=== PATIENT | female | born 1940 | race Caucasian/White ===

== ENCOUNTER 2019-05-12 11:41 | Outpatient (CLI) | payer MEDICARE, SELFPAY ==
--- NOTE | ~2019-05-12 | XR_ITS ---
EXAMINATION: XR hand RT min 3V INDICATION: Unspecified osteoarthritis TECHNIQUE: Three views of the right hand are obtained. COMPARISON: 05/10/2016 FINDINGS: There is an old healed fracture at the head of the fifth metacarpal. No acute osseous findi ngs are evident. There is mild osteoarthritis second and third metacarpophalangeal joints, the second and third proximal interphalangeal joints, and the fourth and fifth proximal and distal interphalang eal joint. There is moderate osteoarthritis of the first interphalangeal joint and second distal inte rphalangeal joint. The soft tissues are unremarkable. IMPRESSION: 1. Polyarticular osteoarthritis. Reviewed, dictated and finalized at location A. [employer]TAIN[employer]
--- NOTE | ~2019-05-12 | XR_ITS ---
EXAMINATION: XR hand LT min 3V DATE: 05/12/2019 12:00 INDICATION: Unspecified osteoarthritis. TECHNIQUE: 3 views of left hand were obtained. COMPARISON: Left hand radiographs 06/02/2016 FINDINGS: Bone alignment is normal. No fracture. There is mild osteoarthritis of second and third met acarpophalangeal joints, first interphalangeal joint, second and third proximal interphalangeal joint s, and fourth and fifth distal interphalangeal joints. There is moderate osteoarthritis of second and third distal interphalangeal joints. IMPRESSION: 1. Polyarticular osteoarthritis. Reviewed, dictated and finalized at location A. [employer]
== END 2019-05-12 11:42 | disposition home or self-care (01) ==
LOC: ANHIMG 11:51
PROVIDERS: PCP Internal Medicine; Visit Provider Internal Medicine
DX: M15.9 Polyosteoarthritis, unspecified (principal)
CPT/HCPCS: 73130

== ENCOUNTER 2019-06-21 10:21 | Outpatient (CLI) | payer MEDICARE, SELFPAY ==
--- NOTE | ~2019-06-21 | XR_ITS ---
EXAMINATION: XR wrist RT 2V DATE: 06/21/2019 10:35 INDICATION: Unspecified right wrist pain TECHNIQUE: Posteroanterior, ulnar deviation, oblique, and lateral views of the right wrist were obtai arun. COMPARISON: Right hand radiographs dated 05/12/2019 FINDINGS: Diffuse osteopenia. 4 mm ulnar minus variance. Alignment is otherwise normal. No acute fracture. Old healed fracture at the head/neck of the right fifth metacarpal with mild secondary osteoarthritis at the fifth metacarpophalangeal joint. Additional mild to moderate osteoarthritis at the distal radioul jaelyn joint and moderate osteoarthritis at the first interphalangeal joint. Soft tissues are unremarkab le. IMPRESSION: 1. Polyarticular osteoarthritis. Reviewed, dictated and finalized at location A.
== END 2019-06-21 10:22 | disposition home or self-care (01) ==
PROVIDERS: PCP Internal Medicine; Visit Provider Nurse Practitioner
DX: M25.539 Pain in unspecified wrist (principal); M19.031 Primary osteoarthritis, right wrist
CPT/HCPCS: 73100

== ENCOUNTER 2019-06-23 10:33 | Outpatient (CLI) | payer MEDICARE, SELFPAY ==
--- NOTE | ~2019-06-23 | XR_ITS ---
EXAMINATION: XR chest 2V DATE: 06/23/2019 10:57 INDICATION: Cough and shortness of breath TECHNIQUE: Frontal and lateral views of the chest are obtained COMPARISON: 03/02/2018 FINDINGS: The lungs are hyperinflated but free of acute opacities. There is no pleural effusion or pn eumothorax. There is stable cardiomegaly. There is moderate thoracic spondylosis. IMPRESSION: 1. No acute cardiopulmonary abnormality. 2. Stable cardiomegaly. Reviewed, dictated and finalized at location B.
== END 2019-06-23 10:34 | disposition home or self-care (01) ==
LOC: ANHIMG 10:39
PROVIDERS: PCP Internal Medicine; Visit Provider Internal Medicine
DX: J40 Bronchitis, not specified as acute or chronic (principal); I51.7 Cardiomegaly
CPT/HCPCS: 71046

== ENCOUNTER 2019-07-21 11:31 | Outpatient (CLI) | payer MEDICARE, SELFPAY ==
--- NOTE | ~2019-07-21 | XR_ITS ---
EXAMINATION: XR chest 2V DATE: 07/21/2019 11:50 INDICATION: Shortness of breath, COVID-19 TECHNIQUE: AP and lateral views of the chest are obtained. COMPARISON: 06/23/2019 FINDINGS: Airspace opacities have developed in the left mid and lower lung zones and at the periphery of the left upper lung zone. There are minimal right basilar airspace opacity. No pleural effusion o r pneumothorax is identified. There is stable cardiomegaly. There is moderate thoracic spondylosis. IMPRESSION: 1. New bilateral airspace opacities, left greater than right, compatible with history of COVID-19 pne umonia. Reviewed, dictated and finalized at location A. IMPRESSION: 1. New bilateral airspace opacities, left greater than right, compatible with h istory of COVID-19 pneumonia.
== END 2019-07-21 11:32 | disposition home or self-care (01) ==
PROVIDERS: PCP Internal Medicine; Visit Provider Internal Medicine
DX: U07.1 COVID-19 (principal); R06.02 Shortness of breath; R91.8 Other nonspecific abnormal finding of lung field
CPT/HCPCS: 71046

== ENCOUNTER 2019-07-28 11:03 | Outpatient (CLI) | payer MEDICARE, SELFPAY ==
[2019-07-28 11:30] VITALS: O2SAT 94
[2019-07-28 11:33] VITALS: O2SAT 87
[2019-07-28 11:35] VITALS: O2SAT 87
[2019-07-28 11:37] VITALS: O2SAT 93
[2019-07-28 11:45] VITALS: O2SAT 95
--- NOTE | 2019-07-28 11:50 | HOMEO2EVAL ---
Home Oxygen Evaluation RC: Home Oxygen (O2) Evaluation Start: 07/28/19 11:47 Freq: Status: Active Protocol: RPE Activity Type Activity Date Activity User E-Sign Co-Sign Detail Recorded Client Recorded Date Recorded By Document 07/28/19 11:30 MIRIAM [id number] 07/28/19 11:49 MIRIAM Document 07/28/19 11:33 MIRIAM [id number] 07/28/19 11:49 MIRIAM Document 07/28/19 11:35 MIRIAM [id number] 07/28/19 11:49 MIRIAM Document 07/28/19 11:37 MIRIAM [id number] 07/28/19 11:49 MIRIAM Document 07/28/19 11:45 MIRIAM [id number] 07/28/19 11:49 MIRIAM 07/28/19 07/28/19 07/28/19 11:30 11:33 11:35 Home O2 Evaluation Test Phase Resting Exercise Exercise Oxygen Delivery Room Air Room Air Nasal Cannula Oxygen Flow Rate (L/min) 1 Pulse Oximetry (90-100 %) 94 87 L 87 L Home Oxygen Evaluation Comments 07/28/19 07/28/19 11:37 11:45 Home O2 Evaluation Test Phase Exercise Resting Oxygen Delivery Nasal Cannula Room Air Oxygen Flow Rate (L/min) 2 Pulse Oximetry (90-100 %) 93 95 Home Oxygen Evaluation Comments PT REQUIRES 2L WITH ACTIVITY
--- NOTE | 2019-07-28 11:51 | PCRCNOTE ---
HOME O2 EVAL DONE, PT NEEDS 2L WITH ACTIVITY. EVAL FAXED TO DR VASQUEZ
== END 2019-07-28 11:04 | disposition home or self-care (01) ==
PROVIDERS: PCP Internal Medicine; Visit Provider Internal Medicine
DX: R06.02 Shortness of breath (principal)
CPT/HCPCS: 94618

== ENCOUNTER 2019-11-10 12:13 | Inpatient (IN) | payer MEDICARE, SELFPAY ==
[2019-11-10] VITALS (12 sets, daily range): BP systolic 108–131; BP diastolic 65–90; PULSE 70–133; RESP 18–22; TEMP 36.1–36.9; O2SAT 96–99
--- NOTE | ~2019-11-10 | XR_ITS ---
XR chest 1V portable DATE: 11/10/2019 13:05 INDICATION: Shortness of breath, tachycardia TECHNIQUE: Portable AP chest on 11/10/2019 at 1306 hours COMPARISON: 07/21/2019 2 view chest FINDINGS: There is cardiomegaly. There is pulmonary vascular redistribution suggesting pulmonary veno us hypertension. No pulmonary consolidation or pleural effusion or pneumothorax is evident. Diffuse osteopenia. IMPRESSION: Cardiomegaly, pulmonary vascular redistribution, suggesting mild congestive heart failure Diffuse osteopenia Reviewed, dictated and finalized at location A. IMPRESSION: Cardiomegaly, pulmonary vascular redistribution, suggesting mild co ngestive heart failure Diffuse osteopenia
--- NOTE | ~2019-11-10 | XR_ITS ---
EXAMINATION: XR abdomen/kub 1V DATE: 11/11/2019 14:27 INDICATION: Abdominal distention. TECHNIQUE: A supine view of the abdomen was obtained. COMPARISON: None. FINDINGS: There are no dilated loops of bowel. There is a small volume of stool in the colon. There i s internal fixation of proximal left femur. IMPRESSION: 1. Normal bowel gas pattern. Reviewed, dictated and finalized at location B.
--- NOTE | 2019-11-10 12:25 | ECG_ITS ---
Measurements Intervals [place] Rate: 129 P: IA: 0 QRS: 123 QRSD: 93 T: 47 QT: 316 QTc: 464 Interpretive Statements ATRIAL TACHYCARDIA/FLUTTER WITH RAPID VENTRICULAR RESPONSE RIGHT AXIS DEVIATION CANNOT RULE OUT SEPTAL INFARCT, AGE INDETERMINATE BORDERLINE ST-T WAVE ABNORMALITY- DIFFUSE LEADS BASELINE ARTIFACT- I, III, AVR, AVL, V4 ABNORMAL ECG Electronically Signed On 11-10-2019 12:58:15 CDT by Kimani Chino D.O.
--- NOTE | 2019-11-10 12:41 | ED.ARRPALP ---
HPI - Arrhythmia/Palpitations General Chief Complaint: Arrhythmia/Palpitations Stated Complaint: rapid heart rate Time Seen by Provider: 11/10/19 12:22 Source: patient Mode of arrival: ambulatory Limitations: no limitations History of Present Illness HPI narrative: This patient is 79 year old female with history of COPD, home oxygen, and atrial fibrillation who presents from her PCP's office for evaluation of a rapid heart beat. Patient states she has been having fatigue and shortness of breath for several weeks. She went to her PCP 's for an evaluation today and they found that she had an elevated heart rate. She was sent to ER for evaluation. She denies palpitations or feeling a rapid heart rate. She states she has been in atrial fibrillation for years. She normally takes diltiazem and metoprolol but she has not taken today's dose. She reports mild nonproductive cough for 1 week. She denies fever or chills. She also denies abdominal pain, nausea, vomiting or diarrhea. She is having an issue with constipation and abdominal bloating . Related Data Home Medications Medication Instructions Recorded Confirmed furosemide 40 mg PO BID 01/14/19 11/10/19 metoprolol tartrate 50 mg PO Q12H 01/14/19 11/10/19 travoprost [Travatan Z] 1 drp OPHTHALMIC (EYE) QPM 01/14/19 11/10/19 amitriptyline 25 mg PO HS 11/10/19 11/10/19 citalopram 20 mg PO DAILY 11/10/19 11/10/19 fluticasone propion-salmeterol 2 inh INHALATION DAILY 11/10/19 11/10/19 [Advair Diskus] losartan 25 mg PO DAILY 11/10/19 11/10/19 mirabegron [Myrbetriq] 25 mg PO HS 11/10/19 11/10/19 saxagliptin [Onglyza] 2.5 mg PO DAILY 11/10/19 11/10/19 sulfasalazine 1,000 mg PO BID 11/10/19 11/10/19 Allergies Allergy/AdvReac Type Severity Reaction Status Date / Time tolterodine Allergy Severe Itching Verified 11/10/19 12:26 Estrogens Allergy Mild SEVERE Verified 11/10/19 12:26 ITCHING levonorgestrel Allergy Mild Rash Verified 11/10/19 12:26 alendronate sodium Allergy Unknown canker Verified 11/10/19 12:26 sores in mouth estradiol Allergy Unknown canker Verified 11/10/19 12:26 sores in mouth estrogens, conjugated Allergy Unknown canker Verified 11/10/19 12:26 sores in mouth glipizide Allergy Unknown Nausea and Verified 11/10/19 12:26 Vomiting metformin Allergy Unknown Nausea and Verified 11/10/19 12:26 Vomiting paroxetine Allergy Unknown Nausea and Verified 11/10/19 12:26 Vomiting warfarin Allergy Unknown Rash Verified 11/10/19 12:26 atorvastatin AdvReac Unknown canker Verified 11/10/19 12:26 sores in mouth Review of Systems Review of Systems: All systems reviewed & are unremarkable except as noted in HPI and below Constitutional: Constitutional: Denies chills, Reports fatigue and Denies fever(s) Cardiovascular: Cardiovascular: Denies chest pain, Reports rapid heart rate and Denies radiating jaw, neck or arm pain Respiratory: Respiratory: Reports cough, Reports dyspnea and Denies wheezing Gastrointestinal: Gastrointestinal: Denies abdominal pain, Reports constipation, Denies nausea and Denies vomiting Musculoskeletal: Musculoskeletal: Reports back pain [facility] Past Medical History Medical History (Updated 11/10/19 @ 21:49 by Ernestina Talley MD) Anemia of chronic disease Aortic stenosis Atrial fibrillation Benign essential hypertension Chronic kidney disease, stage III (moderate) Chronic obstructive pulmonary disease, unspecified Diverticulitis Glaucoma Hypertension Pulmonary hypertension S/P ORIF (open reduction internal fixation) fracture left hip Type 2 diabetes mellitus with diabetic polyneuropathy Surgical History Surgical History Cataract extraction status H/O rectal polypectomy H/O repair of left rotator cuff H/O tubal ligation H/O: hysterectomy History of appendectomy History of bladder surgery History of tonsillectomy History of
[2019-11-10] MEDS: dilTIAZem HCl INJ 25 MG/5 ML VIAL 20 MG IV PUSH (12:49)
[2019-11-10 12:51] LABS: Basophils Absolute Auto 0.1 K/mm3 (0.0-0.1); Basophils Percent Auto 0.8 % (0.2-1.2); Eosinophils Absolute Auto 0.1 K/mm3 (0-0.3); Eosinophils Percent Auto 0.9 % (0-4.4); Hematocrit 36.9 % (37.0-47.0); Hemoglobin 10.9 g/dL (12.0-15.0); Immature Granulocyte Absolute 0.03 K/mm3 (0.00-0.031); Immature Granulocyte Percent A 0.5 % (0-0.5); Lymphocytes Absolute Auto 0.67 K/mm3 (0.9-3.2); Lymphocytes Percent Auto 10.1 % (18.3-44.2); Mean Corpuscular HGB Conc 29.5 g/dl (32-36); Mean Corpuscular Hemoglobin 24.7 pg (26-34); Mean Corpuscular Volume 83.7 fl (80-100); Mean Platelet Volume 10.1 fl (7.4-10.4); Monocytes Absolute Auto 0.5 K/mm3 (0.1-0.6); Monocytes Percent Auto 7.6 % (2.6-8.5); Neutrophils Absolute Auto 5.3 K/mm3 (1.3-6.7); Neutrophils Percent Auto 80.1 % (45.5-73.1); Platelet Count Result 158 k/mm3 (150-375); Red Blood Count 4.41 M/mm3 (4.2-5.4); Red Cell Distribution Width 18.1 % (11.5-14.5); White Blood Count 6.6 K/mm3 (4.5-10.0)
[2019-11-10 12:59] LABS: Platelet Estimate Adequate (Adequate)
[2019-11-10 13:00] LABS: Anisocytosis 1+ (NORMAL); Hypochromasia 1+ (NORMAL); Ovalocytes 2+ (NORMAL); Poikilocytosis 1+ (NORMAL)
[2019-11-10 13:06] LABS: Anion Gap 10 mmol/L (8-16); Blood Urea Nitrogen 13 mg/dL (7-17); Calcium 9.3 mg/dL (8.4-10.2); Carbon Dioxide 25 mmol/L (22-30); Chloride 102 mmol/L (98-107); Estimated CRCL calculation 52 ml/min; Estimated Glomerular Filt Rate > 60; Glucose 103 mg/dL (65-105); Potassium 4.2 mmol/L (3.4-5.0); Sodium 137 mmol/L (137-145)
[2019-11-10] MEDS: METOPROLOL TARTRATE INJ 5 MG/5 ML VIAL IV PUSH ×2 (13:07→14:07)
[2019-11-10 13:08] LABS: INR 1.4; Prothrombin Time 16.4 Seconds (11.1-14.7)
[2019-11-10 13:09] LABS: Partial Thromboplastin Time 33.7 SECONDS (22.3-36.8)
[2019-11-10 13:16] LABS: NT Pro B Type Natriuretic Pept 5260 PG/ML (5-100); Troponin I < 0.012 ng/mL (0.000-0.034)
[2019-11-10] MEDS: dilTIAZem HCL CD 180 MG CAP.ER.24H PO (14:07)
[2019-11-10] MEDS: METOPROLOL TARTRATE 50 MG TAB PO ×2 (14:07→21:24)
[2019-11-10] MEDS: FUROSEMIDE INJ 40 MG/4 ML VIAL IV PUSH (15:12)
--- NOTE | 2019-11-10 16:17 | PM.IMHP ---
H&P: HPI History of Present Illness Date/Time: 11/10/19 16:17 Chief complaint: tachycardia,chf Narrative: Tricia Otto is a 79 year old female Who has a history of COPD and congestive heart failure. She has a history of atrial fibrillation. The patient complained of being fatigued and shortness of breath for several weeks. She presented to her primary care physician's office with a rapid heartbeat. The patient tells me she has not taken any of her medications today. She was sent to the emergency room for further evaluation due to the rapid heart rate. She denies feeling any rapid heart rate. She has been in atrial fibrillation for years. She typically takes diltiazem and metoprolol but did not take today's dose. She has had a nonproductive cough for 1 week. She has had no fever or chills no diarrhea and no nausea no vomiting. Today's chest x-ray was read as cardiomegaly pulmonary vascular redistribution suggesting mild congestive heart failure diffuse osteopenia. Her EKG was read as supraventricular tachycardia her heart rate was initially 128. The patient was given Cardizem push IV x1 and her rate slowed down somewhat which looked more like atrial fibrillation. She was also given Lopressor IV and her Lopressor orally. She was also given IV Lasix. The patient was very short of breath with minimal exertion. She typically sees Dr. flores for her atrial fibrillation and therefore Dr. flores was consulted. Patient does have some anemia but it looks like she is stable from her last lab draw back in August. Her BNP was noted to be 5260. Date of service is 06/10/2019 she is being admitted for AFib with RVR as well x-ray exacerbation of CHF. I have spent approximately 1 hour on this admission. The patient is being admitted to IMU. Review of Systems Review of Systems: All systems reviewed & are unremarkable except as noted in HPI and below Constitutional: Constitutional: Reports as per HPI and Reports no additional constitutional complaints Eyes: Eyes: Reports as per HPI and Reports no additional eye complaints ENT: Reports system reviewed and no additional complaints, except as documented and Reports Normal hearing present Cardiovascular: Cardiovascular: Reports no additional cardiovascular complaints Respiratory: Respiratory: Reports no additional respiratory complaints and Reports no additional respiratory complaints Gastrointestinal: Gastrointestinal: Reports as per HPI and Reports no additional gastrointestinal complaints Musculoskeletal: Musculoskeletal: Reports no additional musculoskeletal complaints Integumentary/Breasts: Skin/Breast: Reports system reviewed and no additional complaints, except as docu and Reports as per HPI Neurologic: Reports system reviewed and no additional complaints, except as documented, Reports as per HPI and Reports Normal hearing present Psychiatric: Psychiatric: Reports no additional psychiatric complaints and Reports as per HPI Endocrine: Endocrine: Reports no additional endocrine complaints Hematologic/Lymphatic: Hematologic/Lymphatic: Reports no additional hematologic/lymphatic complaints Allergic/Immunologic: Allergic/Immunologic: Reports no additional allergic/immunologic complaints [facility] Past Medical History Medical History (Updated 11/10/19 @ 16:52 by Linda Crandall NP) Anemia of chronic disease Atrial fibrillation Benign essential hypertension Chronic kidney disease, stage III (moderate) Chronic obstructive pulmonary disease, unspecified Diverticulitis Glaucoma Hypertension S/P ORIF (open reduction internal fixation) fracture left hip Type 2 diabetes mellitus with diabetic polyneuropathy Surgical History Surgical History (Updated 11/10/19 @ 16:41 by Linda Crandall NP) Cataract extraction status H/O rectal polypectomy H/O repair of left rotator cuff H/O tubal ligation H/O: hysterectomy History of appendectomy History of bladder surgery History of tonsillec
--- NOTE | 2019-11-10 17:16 | PM.CNCAR ---
Assessment and Plan Assessment and plan (1) Hypertension: Code(s): I10 - Essential (primary) hypertension Status: Chronic Assessment and Plan: at goal (2) Atrial fibrillation: Code(s): I48.91 - Unspecified atrial fibrillation Status: Chronic Assessment and Plan: start metoprolol 50 mg p.o. b.i.d. as well as continuing her diltiazem 180 mg daily. She is not anticoagulation candidate due to GI bleeding. (3) COVID-19 virus infection: Code(s): U07.1 - COVID-19 Status: Acute (4) (HFpEF) heart failure with preserved ejection fraction: Code(s): I50.30 - Unspecified diastolic (congestive) heart failure Status: Acute Assessment and Plan: Acute on chronic. Likely worsened by her rapid ventricular response of her atrial fibrillation as well as possible contribution from history of chronic virus infection. Will check a 2D echocardiogram Doppler Start furosemide 40 mg IV daily.. I/Os , daily weights, basic metabolic panel in the morning. (5) Pulmonary hypertension: Code(s): I27.20 - Pulmonary hypertension, unspecified Status: Acute Assessment and Plan: previously severe (6) Aortic stenosis: Code(s): I35.0 - Nonrheumatic aortic (valve) stenosis Status: Acute Assessment and Plan: mild History of Present Illness History of Present Illness Consult date/time: 11/10/19 17:16 Requesting physician: Ernestina Talley MD Consult reason: atrial fibrillation Reason For Visit: tachycardia,chf Narrative: date of service 11/10/2019 reason for admission: Shortness of breath, tachycardia History patient is a 79-year-old female who has history of COPD on oxygen since being diagnosed with Coronavirus back in May. She came to the hospital because of worsening shortness of breath. She states that since May she has been progressively more short of breath to the point that she cannot walk across the room without becoming dyspneic. Today she also felt her heart pounding very hard. The palpitations were new to her although she does have a history of atrial fibrillation it was pounding much more than usual. She has also been progressively wearing out very easily. She is tired throughout the day. She denies any chest pain. Has had some worsening swelling. Again she is short of breath basically doing anything. She denies any syncope, presyncope, paroxysmal nocturnal dyspnea, orthopnea. She came to the ER has found be tachycardic and was given 20 mg IV diltiazem as well as metoprolol 5 mg x3. Currently she is in atrial fibrillation with mildly fast rate. She is not on anticoagulation because of history of bleeding. With Review of Systems Review of Systems: All systems reviewed & are unremarkable except as noted in HPI and below Constitutional: Constitutional: Reports weakness Eyes: Eyes: Denies blurry vision ENT: Reports Normal hearing present Cardiovascular: Cardiovascular: Denies chest pain, Reports pedal edema and Reports palpitations Respiratory: Respiratory: Reports dyspnea Gastrointestinal: Gastrointestinal: Denies abdominal pain Genitourinary: Genitourinary: Denies hematuria Musculoskeletal: Musculoskeletal: Denies neck pain Integumentary/Breasts: Skin/Breast: Denies dry skin Neurologic: Denies headache(s) Psychiatric: Psychiatric: Denies anxiety Endocrine: Endocrine: Reports fatigue Hematologic/Lymphatic: Hematologic/Lymphatic: Denies easy bleeding Allergic/Immunologic: Allergic/Immunologic: Denies lip swelling PMFSH Past Medical History Medical History Anemia of chronic disease Atrial fibrillation Benign essential hypertension Chronic kidney disease, stage III (moderate) Chronic obstructive pulmonary disease, unspecified Diverticulitis Glaucoma Hypertension S/P ORIF (open reduction internal fixation) fracture left hip Type 2 di
[2019-11-10 17:51] LABS: Glucose Point of Care 95 (65-105)
--- NOTE | 2019-11-10 19:04 | PC.NURSE ---
This patient, Tricia Otto, was admitted to IMU Room 212-01. Patient/family oriented to hospital policies and general routines including ID bracelet, bed and alarms, visiting hours, pain management, procedures, bathroom and other care routines, personal items, smoking policy, room service/diet, and visiting hours. Valuables list has been completed. Information on how to activate the Rapid Response Team has been discussed. Patient/Family are encouraged to report perceived risks to care and to ask questions if they do not understand what they are told or what they should do.
[2019-11-10] MEDS: GABAPENTIN 100 MG CAPSULE 200 MG PO (21:24)
[2019-11-10] MEDS: PANTOPRAZOLE 40 MG TABLET PO (21:25)
[2019-11-10] MEDS: LATANOPROST 0.005% OP SOLN 2.5 ML BTL 1 DROP EACH EYE (21:25)
[2019-11-10] MEDS: sulfaSALAzine 500 MG TABLET 1000 MG PO (21:26)
[2019-11-10] MEDS: MIRABEGRON 25 MG ER TABLET PO (21:26)
[2019-11-10] MEDS: PRAVASTATIN SODIUM 20 MG TABLET 40 MG PO (21:27)
[2019-11-10] MEDS: AMITRIPTYLINE HCL 25 MG TABLET PO (21:28)
[2019-11-10 21:49] LABS: Glucose Point of Care 134 (65-105)
[2019-11-11] VITALS (16 sets, daily range): BP systolic 93–129; BP diastolic 53–86; PULSE 60–142; RESP 18–20; TEMP 36.3–36.8; O2SAT 96–100
--- NOTE | 2019-11-11 | ECHO_ITS ---
Patient Info Name: Tricia Otto Age: 79 years : 1940 Gender: Female Ht: 68 in Wt: 191 lbs BSA: 2.06 m2 HR: 68 bpm BP: 104 / 55 mmHg Heart Rhythm: Atrial Fibrillation Technical Quality: Good Exam Date: 11/11/2019 8:26 AM Exam Location: [facility] Patient Status: Outpatient Admit Date: 11/10/2019 Staff Ordering Physician: Linda Crandall NP Solution Make Up Operator: Lester Lau RDCS, RT Attending Provider: Casie Latham PA-C Referring Physician: Raz RODRIGUES; Exam Type: CA echo doppler color flow Study Info Indications I50.9 - Heart failure, unspecified Complete two-dimensional, color flow and Doppler transthoracic echocardiogram is performed. Strain analysis performed. Summary 1. Left ventricular chamber dimension is mildly enlarged. 2. Left ventricular systolic function is mildly reduced, estimated at 40-45%. 3. There is mildly increased left ventricular wall thickness. 4. The left ventricular diastolic function is indeterminate. 5. Global longitudinal strain is abnormal at -12 %. 6. Left atrial chamber dimension is moderately enlarged. 7. Right atrial chamber dimension is severely enlarged. 8. There is moderate aortic valve stenosis with a peak velocity of 240 cm/s, mean gradient of 11 mmHg, and aortic valve area of 1.3 cm2. 9. There is severe mitral valve regurgitation. 10. There is severe tricuspid valve regurgitation. 11. Moderate pulmonary hypertension, estimated pulmonary arterial systolic pressure is 45 mmHg. 12. There is mild pulmonic regurgitation. 13. Right ventricular chamber dimension is severely enlarged. 14. Right ventricular systolic function is reduced. 15. There is small pericardial effusion. 16. There is moderate aortic atherosclerosis. Left Ventricle Left ventricular chamber dimension is mildly enlarged. Left ventricular systolic function is mildly reduced, estimated at 40-45%. There is mildly increased left ventricular wall thickness. The left ventricular diastolic function is indeterminate. Global longitudinal strain is abnormal at -12 %. Right Ventricle Right ventricular chamber dimension is severely enlarged. Right ventricular systolic function is reduced. Left Atria Left atrial chamber dimension is moderately enlarged. Right Atria Right atrial chamber dimension is severely enlarged. Atrial Septum Intact interatrial septum visualized by color flow imaging. Aortic Valve The aortic valve is trileaflet. There is moderate aortic valve stenosis with a peak velocity of 240 cm/s, mean gradient of 11 mmHg, and aortic valve area of 1.3 cm2. There is trace aortic valve regurgitation. Pulmonic Valve The pulmonic valve is normal. There is no pulmonic valve stenosis. There is mild pulmonic regurgitation. Mitral Valve The mitral valve has normal leaflets. There is no mitral valve stenosis. There is severe mitral valve regurgitation. Tricuspid Valve The tricuspid valve leaflets are normal. There is no significant tricuspid valve stenosis. There is severe tricuspid valve regurgitation. Moderate pulmonary hypertension, estimated pulmonary arterial systolic pressure is 45 mmHg. Pericardium/Pleural The pericardium appears normal. There is small pericardial effusion. Inferior Vena Cava Dilated inferior vena cava with <50% collapse upon inspiration consistent with elevated right atrial pressure, 15 mmHg. Aorta The aortic root size at the sinus of Valsalva is normal. The prox ascendi
--- NOTE | 2019-11-11 00:14 | PCRCNOTE ---
Window of time for administration has passed. See next scheduled administration.
[2019-11-11] MEDS: ALBUTEROL SULFATE (*SP) AEROSOL 1 PUFF 2 PUFF INHALATION ×4 (03:13→20:47)
[2019-11-11 05:24] LABS: Basophils Absolute Auto 0.1 K/mm3 (0.0-0.1); Basophils Percent Auto 1.2 % (0.2-1.2); Eosinophils Absolute Auto 0.1 K/mm3 (0-0.3); Eosinophils Percent Auto 1.7 % (0-4.4); Hematocrit 33.7 % (37.0-47.0); Hemoglobin 9.8 g/dL (12.0-15.0); Immature Granulocyte Absolute 0.02 K/mm3 (0.00-0.031); Immature Granulocyte Percent A 0.4 % (0-0.5); Lymphocytes Absolute Auto 0.74 K/mm3 (0.9-3.2); Lymphocytes Percent Auto 14.3 % (18.3-44.2); Mean Corpuscular HGB Conc 29.1 g/dl (32-36); Mean Corpuscular Hemoglobin 24.3 pg (26-34); Mean Corpuscular Volume 83.6 fl (80-100); Mean Platelet Volume 9.7 fl (7.4-10.4); Monocytes Absolute Auto 0.5 K/mm3 (0.1-0.6); Monocytes Percent Auto 9.8 % (2.6-8.5); Neutrophils Absolute Auto 3.8 K/mm3 (1.3-6.7); Neutrophils Percent Auto 72.6 % (45.5-73.1); Platelet Count Result 134 k/mm3 (150-375); Red Blood Count 4.03 M/mm3 (4.2-5.4); White Blood Count 5.2 K/mm3 (4.5-10.0)
[2019-11-11 05:37] LABS: Alanine Aminotransferase 7 U/L (4-35); Alkaline Phosphatase 154 U/L (38-126); Anion Gap 10 mmol/L (8-16); Aspartate Amino Transferase 25 U/L (14-36); Bilirubin,Total 1.5 mg/dL (0.2-1.3); Blood Urea Nitrogen 16 mg/dL (7-17); Calcium 8.8 mg/dL (8.4-10.2); Carbon Dioxide 25 mmol/L (22-30); Chloride 101 mmol/L (98-107); Estimated CRCL calculation 52 ml/min; Estimated Glomerular Filt Rate > 60; Glucose 114 mg/dL (65-105); Potassium 3.7 mmol/L (3.4-5.0); Sodium 136 mmol/L (137-145)
[2019-11-11] MEDS: GABAPENTIN 100 MG CAPSULE 200 MG PO ×3 (05:42→23:43)
[2019-11-11 05:46] LABS: Hemoglobin A1C 6.1 % (<5.7)
[2019-11-11 08:51] LABS: Glucose Point of Care 116 (65-105)
[2019-11-11] MEDS: FLUTICASONE/SALMETEROL 115-21 MCG INHALER 1 PUFF 2 PUFF INHALATION ×2 (08:55→20:47)
--- NOTE | 2019-11-11 09:28 | ECG_ITS ---
Measurements Intervals [place] Rate: 91 P: NE: 0 QRS: 128 QRSD: 97 T: 154 QT: 378 QTc: 465 Interpretive Statements ATRIAL FIBRILLATION INCOMPLETE RIGHT BUNDLE BRANCH BLOCK CANNOT RULE OUT SEPTAL INFARCT, AGE INDETERMINATE T WAVE ABNORMALITY IN LAT/HIGH LAT LEADS- CONSIDER ISCHEMIA ABNORMAL ECG Electronically Signed On 11-11-2019 9:49:31 CDT by Kimani Chino D.O.
--- NOTE | 2019-11-11 09:36 | PM.PNCARD ---
Progress Note: A&P Assessment and Plan (1) Atrial fibrillation: Qualifiers: Atrial fibrillation type: unspecified chronic Qualified Code(s): I48.20 - Chronic atrial fibrillation, unspecified Code(s): I48.91 - Unspecified atrial fibrillation Status: Chronic Assessment and Plan: Rate is better controlled. Continue metoprolol 50 mg p.o. b.i.d. and diltiazem 180 mg daily. She is not anticoagulation candidate due to GI bleeding . (2) (HFpEF) heart failure with preserved ejection fraction: Qualifiers: Heart failure chronicity: acute on chronic Qualified Code(s): I50.33 - Acute on chronic diastolic (congestive) heart failure Code(s): I50.30 - Unspecified diastolic (congestive) heart failure Status: Acute Assessment and Plan: Acute on chronic. Likely worsened by her rapid ventricular response of her atrial fibrillation as well as possible contribution from history of chronic virus infection. She states she has had abdominal bloating for a month. She has gained 20 lb over 1 month. Echo pending Diuresing well. Supplement potassium. Continue furosemide IV today. Continue I/Os, daily weights. Monitor renal function and electrolytes . (3) Hypertension: Qualifiers: Hypertension type: essential hypertension Qualified Code(s): I10 - Essential (primary) hypertension Code(s): I10 - Essential (primary) hypertension Status: Chronic Assessment and Plan: At goal (4) Pulmonary hypertension: Code(s): I27.20 - Pulmonary hypertension, unspecified Status: Acute Assessment and Plan: Previously severe Echo as above (5) Aortic stenosis: Qualifiers: Cardiac valve disease etiology: nonrheumatic Qualified Code(s): I35.0 - Nonrheumatic aortic (valve) stenosis Code(s): I35.0 - Nonrheumatic aortic (valve) stenosis Status: Acute Assessment and Plan: History of mild aortic stenosis. Echo as above Additional Plan Further recommendations pending the outcome of the echocardiogram Plan discussed with Dr. Philip 0945 11/11/2019. Subjective Date/time seen: 11/11/19 09:36 Interval history: Follow up for: Atrial fibrillation with rapid ventricular response, heart failure with preserved ejection fraction, atrial stenosis, hypertension, pulmonary hypertension Date of service: 11/11/2019 Subjective: Denied chest discomfort. Breathing is much better. Abdominal bloating has been going on for at least one month and she has gained 20 lb. Review of Systems Review of Systems: All systems reviewed & are unremarkable except as noted in HPI and below Constitutional: Constitutional: Reports fatigue, Denies headache(s) and Reports weakness Eyes: Eyes: Denies blurry vision ENT: Reports Normal hearing present, Denies headache(s), Denies lip swelling and Denies neck pain Cardiovascular: Cardiovascular: Denies chest pain, Reports pedal edema, Reports palpitations and Reports dyspnea Respiratory: Respiratory: Reports dyspnea Gastrointestinal: Gastrointestinal: Denies abdominal pain and Reports bloating Genitourinary: Genitourinary: Denies hematuria Musculoskeletal: Musculoskeletal: Denies neck pain Integumentary/Breasts: Skin/Breast: Denies dry skin Neurologic: Reports Normal hearing present, Denies headache(s) and Reports weakness Psychiatric: Psychiatric: Denies anxiety Endocrine: Endocrine: Reports fatigue and Reports palpitations Hematologic/Lymphatic: Hematologic/Lymphatic: Denies easy bleeding Allergic/Immunologic: Allergic/Immunologic: Denies lip swelling Exam Narrative: Exam Narrative: Alert and oriented . No distress. Comfortable. Const: General: cooperative, comfortable and no acute distress Nutritional Appearance: obese HENMT: Gene
[2019-11-11] MEDS: CITALOPRAM HYDROBROMIDE 20 MG TABLET PO (09:59)
[2019-11-11] MEDS: POTASSIUM CHLORIDE 20 MEQ TABLET 40 MEQ PO (10:13)
[2019-11-11] MEDS: PANTOPRAZOLE 40 MG TABLET PO ×2 (10:15→23:42)
[2019-11-11] MEDS: sulfaSALAzine 500 MG TABLET 1000 MG PO ×2 (10:15→23:43)
[2019-11-11] MEDS: LOSARTAN POTASSIUM 25 MG TABLET PO (10:15)
[2019-11-11] MEDS: FUROSEMIDE INJ 40 MG/4 ML VIAL IV PUSH ×2 (10:15→17:39)
[2019-11-11] MEDS: METOPROLOL TARTRATE 50 MG TAB PO ×2 (10:16→23:42)
[2019-11-11] MEDS: dilTIAZem HCL CD 180 MG CAP.ER.24H PO (10:16)
--- NOTE | 2019-11-11 13:51 | PM.IMPN ---
Progress Note: A&P Assessment and Plan (1) Atrial fibrillation: Qualifiers: Atrial fibrillation type: unspecified chronic Qualified Code(s): I48.20 - Chronic atrial fibrillation, unspecified Code(s): I48.91 - Unspecified atrial fibrillation Status: Chronic Assessment and Plan: Upon presentation, she was found to be in AFib with RVR which improved with IV Cardizem and Lopressor. Heart rate has been better controlled today. She is established with Dr. Botello. She is not on chronic anticoagulation given history of GI bleed. Resume metoprolol 50 mg p.o. b.i.d. and diltiazem 180 mg daily per Cardiology recommendations. Continue to monitor closely. Cardiology has been consulted and their recommendations are appreciated. (2) Congestive heart failure: Qualifiers: Heart failure type: systolic Heart failure chronicity: acute on chronic Qualified Code(s): I50.23 - Acute on chronic systolic (congestive) heart failure Code(s): I50.9 - Heart failure, unspecified Status: Acute Assessment and Plan: With evidence of volume overload. Echo performed today revealed EF 40-45% and indeterminate LV diastolic function, moderate , severe MR, severe TR, and moderate pulmonary hypertension. Continue 40 mg IV Lasix daily per Cardiology recommendations continue metoprolol and losartan. Monitor daily weight and I&O. Continue heart healthy diet (3) Hypertension: Qualifiers: Hypertension type: essential hypertension Qualified Code(s): I10 - Essential (primary) hypertension Code(s): I10 - Essential (primary) hypertension Status: Chronic Assessment and Plan: Blood pressures have been well controlled. Continue metoprolol and losartan Monitor blood pressures closely (4) Iron deficiency anemia due to chronic blood loss: Code(s): D50.0 - Iron deficiency anemia secondary to blood loss (chronic) Status: Chronic Assessment and Plan: Chronic. H&H is mildly low but is similar to baseline her review of prior labs. Her vitals are stable and she has no evidence of active bleeding. She is not on iron supplementation and therefore will check iron panel. 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 Last A1c is unknown. Continue Accu-Cheks ACHS, SSI, and hypoglycemic protocol Check updated A1c (6) Crohn's disease of large intestine with other complication: Code(s): K50.118 - Crohn's disease of large intestine with other complication Status: Chronic Assessment and Plan: She denies any issues at this time. She is on sulfasalazine. She is scheduled to establish care with Dr. Sutton as an outpatient based on referral by her PCP. Continue sulfasalazine I believe that she would benefit from GI evaluation as an outpatient. (7) Chronic obstructive pulmonary disease, unspecified: Code(s): J44.9 - Chronic obstructive pulmonary disease, unspecified Status: Chronic Assessment and Plan: She is requiring 2 L O2 at this time and is maintaining oxygenation 99%. She is not on home O2. I weaned her oxygen to 1 L. Continue to monitor oxygen saturations and continue to wean as tolerated. Continue albuterol and Advair Subjective Date/time seen: 11/11/19 13:51 Interval history: Date of service: 11/11/2019 She is feeling better today. Her palpitations have improved, though she notes she still feels occasional episodes. She denies any chest pain, shortnes
[2019-11-11 16:25] LABS: Glucose Point of Care 196 (65-105)
--- NOTE | 2019-11-11 16:28 | P.PNCA_ITS ---
Progress Note: A&P Assessment and Plan (1) Atrial fibrillation: Qualifiers: Atrial fibrillation type: unspecified chronic Qualified Code(s): I48.20 - Chronic atrial fibrillation, unspecified Code(s): I48.91 - Unspecified atrial fibrillation Status: Chronic Assessment and Plan: Rate is better controlled. Continue metoprolol 50 mg p.o. b.i.d. and diltiazem 180 mg daily. She is not anticoagulation candidate due to GI bleeding . (2) (HFpEF) heart failure with preserved ejection fraction: Qualifiers: Heart failure chronicity: acute on chronic Qualified Code(s): I50.33 - Acute on chronic diastolic (congestive) heart failure Code(s): I50.30 - Unspecified diastolic (congestive) heart failure Status: Acute Assessment and Plan: Acute on chronic. Likely worsened by her rapid ventricular response of her atrial fibrillation as well as possible contribution from history of chronic virus infection. She states she has had abdominal bloating for a month. She has gained 20 lb over 1 month. Echo pending Diuresing well. Supplement potassium. Continue furosemide IV today. Continue I/Os, daily weights. Monitor renal function and electrolytes . (3) Hypertension: Qualifiers: Hypertension type: essential hypertension Qualified Code(s): I10 - Ess ential (primary) hypertension Code(s): I10 - Essential (primary) hypertension Status: Chronic Assessment and Plan: At goal (4) Pulmonary hypertension: Code(s): I27.20 - Pulmonary hypertension, unspecified Status: Acute Assessment and Plan: Previously severe Echo as above (5) Aortic stenosis: Qualifiers: Cardiac valve disease etiology: nonrheumatic Qualified Code(s): I35.0 - Nonrheumatic aortic (valve) stenosis Code(s): I35.0 - Nonrheumatic aortic (valve) stenosis Status: Acute Assessment and Plan: History of mild aortic stenosis. Echo as above Additional Plan Further recommendations pending the outcome of the echocardiogram Plan discussed with Dr. Philip 0945 11/11/2019. Subjective Date/time seen: 11/11/19 16:28 Interval history: Follow up for: Atrial fibrillation with rapid ventricular response, heart failure with preserved ejection fraction, atrial stenosis, hypertension, pulmonary hypertension Date of service: 11/11/2019 Subjective: Denied chest discomfort. Breathing is much better. Abdominal bloating has been going on for at least one month and she has gained 20 lb. Review of Systems Review of Systems: All systems reviewed & are unremarkable except as noted in HPI and below Constitutional: Constitutional: Reports fatigue, Denies headache(s) and Reports weakness Eyes: Eyes: Denies blurry vision ENT: Reports Normal hearing present, Denies headache(s), Denies lip swelling and Denies neck pain Cardiovascular: Cardiovascular: Denies chest pain, Reports pedal edema, Reports palpitations and Reports dyspnea Respiratory: Respiratory: Reports dyspnea Gastrointestinal: Gastrointestinal: Denies abdominal pain and Reports bloating Genitourinary: Genitourinary: Denies hematuria Musculoskeletal: Musculoskeletal: Denies neck pain Integumentary/Breasts: Skin/Breast: Denies dry skin Neurologic: Reports Normal hearing present, Denies headache(s) and
[2019-11-11 17:33] LABS: Glucose Point of Care 144 (65-105)
[2019-11-11 21:46] LABS: Glucose Point of Care 135 (65-105)
[2019-11-11] MEDS: AMITRIPTYLINE HCL 25 MG TABLET PO (23:42)
[2019-11-11] MEDS: MIRABEGRON 25 MG ER TABLET PO (23:42)
[2019-11-11] MEDS: PRAVASTATIN SODIUM 20 MG TABLET 40 MG PO (23:43)
[2019-11-11] MEDS: LATANOPROST 0.005% OP SOLN 2.5 ML BTL 1 DROP EACH EYE (23:44)
[2019-11-12] VITALS (18 sets, daily range): BP systolic 91–115; BP diastolic 46–61; PULSE 58–106; RESP 16–18; TEMP 36.4–36.5; O2SAT 95–100
[2019-11-12] MEDS: ALBUTEROL SULFATE (*SP) AEROSOL 1 PUFF 2 PUFF INHALATION ×4 (02:16→19:34)
[2019-11-12 04:59] LABS: Basophils Percent Auto 0.4 % (0.2-1.2); Eosinophils Absolute Auto 0.1 K/mm3 (0-0.3); Eosinophils Percent Auto 1.5 % (0-4.4); Hemoglobin 9.2 g/dL (12.0-15.0); Immature Granulocyte Absolute 0.02 K/mm3 (0.00-0.031); Immature Granulocyte Percent A 0.4 % (0-0.5); Lymphocytes Absolute Auto 0.67 K/mm3 (0.9-3.2); Lymphocytes Percent Auto 14.5 % (18.3-44.2); Mean Corpuscular HGB Conc 29.7 g/dl (32-36); Mean Corpuscular Hemoglobin 24.3 pg (26-34); Mean Platelet Volume 9.8 fl (7.4-10.4); Monocytes Absolute Auto 0.6 K/mm3 (0.1-0.6); Monocytes Percent Auto 12.1 % (2.6-8.5); Neutrophils Absolute Auto 3.3 K/mm3 (1.3-6.7); Neutrophils Percent Auto 71.1 % (45.5-73.1); Platelet Count Result 131 k/mm3 (150-375); Red Blood Count 3.78 M/mm3 (4.2-5.4); Red Cell Distribution Width 17.9 % (11.5-14.5); White Blood Count 4.6 K/mm3 (4.5-10.0)
[2019-11-12 05:32] LABS: Anion Gap 8 mmol/L (8-16); Blood Urea Nitrogen 17 mg/dL (7-17); Calcium 8.6 mg/dL (8.4-10.2); Carbon Dioxide 28 mmol/L (22-30); Chloride 101 mmol/L (98-107); Estimated CRCL calculation 47 ml/min; Estimated Glomerular Filt Rate 54; Glucose 130 mg/dL (65-105); Iron 32 ug/dL (37-170); Potassium 3.6 mmol/L (3.4-5.0); Sodium 137 mmol/L (137-145)
[2019-11-12 05:41] LABS: Percent Iron Saturation 9 % (20-50)
[2019-11-12] MEDS: GABAPENTIN 100 MG CAPSULE 200 MG PO ×3 (06:18→20:58)
[2019-11-12] MEDS: sulfaSALAzine 500 MG TABLET 1000 MG PO ×2 (08:17→20:59)
[2019-11-12] MEDS: METOPROLOL TARTRATE 50 MG TAB PO ×2 (08:17→20:57)
[2019-11-12] MEDS: PANTOPRAZOLE 40 MG TABLET PO ×2 (08:18→20:57)
[2019-11-12] MEDS: CITALOPRAM HYDROBROMIDE 20 MG TABLET PO (08:18)
[2019-11-12] MEDS: FUROSEMIDE INJ 40 MG/4 ML VIAL IV PUSH ×2 (08:18→16:58)
[2019-11-12] MEDS: dilTIAZem HCL CD 180 MG CAP.ER.24H PO (08:18)
[2019-11-12] MEDS: LOSARTAN POTASSIUM 25 MG TABLET PO (08:19)
[2019-11-12 08:53] LABS: Glucose Point of Care 109 (65-105)
[2019-11-12] MEDS: FLUTICASONE/SALMETEROL 115-21 MCG INHALER 1 PUFF 2 PUFF INHALATION ×2 (09:17→19:35)
[2019-11-12 09:30] LABS: Hemoglobin A1C 6.1 % (<5.7)
[2019-11-12] MEDS: FERROUS GLUCONATE 324 MG TABLET PO ×2 (10:46→16:58)
--- NOTE | 2019-11-12 11:17 | PM.PNCARD ---
Progress Note: A&P Additional Plan 79-year-old lady with chronic atrial fibrillation valvular heart disease as detailed above and seen on echocardiogram. She appears to be diuresing and benefitting from IV furosemide so I would probably recommend keeping her in the hospital in continuing this at least 1 more day. She also may have some chronic worsening in her dyspnea because of recent rodriguez virus infection. Tyrell Philip MD [facility] Subjective Date/time seen: date of service:11/12/19 11:17 Interval history: Follow-up visit in this 79-year-old lady with : chronic atrial fibrillation valvular heart disease with mild aortic stenosis, severe mitral and tricuspid regurgitation. Shortness of breath evidence of volume overload mostly with abdominal ascites at this time recent rodriguez virus infection Exam Const: General: comfortable and no acute distress HENMT: Mouth: Yes dry mucous membranes Eyes: Sclera: sclerae normal Pupils: Equal, round and reactive pupils present Neck: Neck: supple and no JVD Thyroid: thyroid normal Resp: Effort & Inspection: normal respiratory effort Auscultation: clear to auscultation bilaterally Cardio: Rhythm: abnormal rhythm irregularly irregular GI: Auscultation: normal bowel sounds Other: protrude somewhat distended abdomen Skin: General skin exam: normal color Neuro: Cognition (Neuro): normal cognition Extrem: Other: currently no significant lower extremity edema Objective Data Vital Signs Vital Signs: Vital Signs - 24 hr 11/11/19 12:00 11/11/19 14:00 11/11/19 16:00 Temperature 36.8 C 36.3 C L Pulse Rate 103 H 67 67 Respiratory Rate 20 18 Blood Pressure 129/63 93/53 L Pulse Oximetry 100 97 11/11/19 18:00 11/11/19 20:00 11/11/19 22:00 Temperature 36.5 C Pulse Rate 74 80 80 Respiratory Rate 18 Blood Pressure 107/58 L Pulse Oximetry 96 11/11/19 23:42 11/12/19 00:00 11/12/19 02:00 Temperature 36.4 C L Pulse Rate 84 80 84 Respiratory Rate 18 Blood Pressure 96/46 L Pulse Oximetry 100 11/12/19 02:21 11/12/19 04:00 11/12/19 06:00 Temperature 36.4 C L Pulse Rate 78 80 Respiratory Rate 18 Blood Pressure 115/61 Pulse Oximetry 95 100 11/12/19 08:00 11/12/19 08:17 11/12/19 09:52 Temperature 36.5 C Pulse Rate 78 80 58 L Respiratory Rate 18 Blood Pressure 97/58 L Pulse Oximetry 99 Intake/Output Intake/Output: Intake & Output 11/09/19 11/10/19 11/11/19 11/12/19 23:59 23:59 23:59 23:59 Intake Total 240 1700 540 Output Total 1600 2300 1250 Balance -6894 -115 -962 Meds/Results Medications: Active Medications Generic Name Dose Route Start Last Admin Trade Name Freq PRN Reason Stop Dose Admin Albuterol 2 puff 11/10/19 20:00 11/12/19 09:16 Proventil Hfa INHALATION 2 puff Q6HRT LAURI Administration Amitriptyline HCl 25 mg 11/10/19 21:00 11/11/19 23:42 Elavil PO 25 mg HS LAURI Administration Citalopram Hydrobromide 20 mg 11/11/19 09:00 11/12/19 08:18 Celexa PO 20 mg DAILY LAURI Administration Dextrose 12.5 gm 11/10/19 16:28 Dextrose 50% Syringe IV PUSH PRN PRN Hypoglycemia Protocol Diltiazem HCl 180 mg 11/11/19 09:00 11/12/19 08:18 Cardizem Cd PO 180 mg DAILY LAURI Administration Ferrous Gluconate 324 mg 11/12/19 09:00 11/12/19 10:46 Ferrous Gluconate PO 324 mg BIDWM LAURI Administration Furosemide 40 mg 11/11/19 09:00 11/12/19 08:18 Lasix Inj IV PUSH 40 mg BID LAURI Administration Gabapentin 200 mg 11/10/19 22:00 11/12/19 06:18 Neurontin PO 200 mg Q8HR LAURI Administration Glucagon 1 mg 11/10/19 16:28 Glucagon For Inj IM PRN PRN Hypoglycemia Protocol Glucose 15 gm 11/10/19 16:28 Glutose 15 PO PRN PRN Hypoglycemia Protocol Dextrose 1,000 mls @ 100 mls/hr 11/10/19 16:28 Dextrose 5% 1,000 Ml IVPB PRN PRN Hypoglycemia Protocol Insulin
[2019-11-12 12:11] LABS: Glucose Point of Care 102 (65-105)
--- NOTE | 2019-11-12 12:59 | PM.IMPN ---
Progress Note: A&P Assessment and Plan (1) Atrial fibrillation: Qualifiers: Atrial fibrillation type: unspecified chronic Qualified Code(s): I48.20 - Chronic atrial fibrillation, unspecified Code(s): I48.91 - Unspecified atrial fibrillation Status: Chronic Assessment and Plan: Upon presentation, she was found to be in AFib with RVR which improved with IV Cardizem and Lopressor. Heart rate has been better controlled today. She is established with Dr. Botello. She is not on chronic anticoagulation given history of GI bleed. Resume metoprolol 50 mg p.o. b.i.d. and diltiazem 180 mg daily per Cardiology recommendations. Continue to monitor closely. Cardiology has been consulted and their recommendations are appreciated. (2) Congestive heart failure: Qualifiers: Heart failure chronicity: acute on chronic Heart failure type: systolic Qualified Code(s): I50.23 - Acute on chronic systolic (congestive) heart failure Code(s): I50.9 - Heart failure, unspecified Status: Acute Assessment and Plan: With evidence of volume overload. Echo performed 11/10 revealed EF 40-45% and indeterminate LV diastolic function, moderate , severe MR, severe TR, and moderate pulmonary hypertension. Continue diuresis with 40 mg IV Lasix BID per Cardiology recommendations continue metoprolol and losartan. Monitor daily weight and I&O. Continue heart healthy diet (3) Hypertension: Qualifiers: Hypertension type: essential hypertension Qualified Code(s): I10 - Essential (primary) hypertension Code(s): I10 - Essential (primary) hypertension Status: Chronic Assessment and Plan: Blood pressures have been low-normal. She is asymptomatic. Continue metoprolol and losartan Monitor blood pressures closely (4) Iron deficiency anemia due to chronic blood loss: Code(s): D50.0 - Iron deficiency anemia secondary to blood loss (chronic) Status: Chronic Assessment and Plan: Chronic. H&H is mildly low but is similar to baseline per review of prior labs. Her vitals are stable and she has no evidence of active bleeding. Iron panel revealed iron deficiency with low and saturation. Begin p.o. iron supplementation. 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 A1c is 6.1 (11/12/19) Continue Accu-Cheks ACHS, SSI, and hypoglycemic protocol She is on saxagliptin which I do not believe is on formulary. (6) Crohn's disease of large intestine with other complication: Code(s): K50.118 - Crohn's disease of large intestine with other complication Status: Chronic Assessment and Plan: She denies any issues at this time. She is on sulfasalazine. She is scheduled to establish care with Dr. Sutton as an outpatient based on referral by her PCP. Continue sulfasalazine I believe that she would benefit from GI evaluation as an outpatient. (7) Chronic obstructive pulmonary disease, unspecified: Qualifiers: COPD type: unspecified COPD Qualified Code(s): J44.9 - Chronic obstructive pulmonary disease, unspecified Code(s): J44.9 - Chronic obstructive pulmonary disease, unspecified Status: Chronic Assessment and Plan: She was initially requiring 2 L oxygen and has been weaned down to room air. She is maintaining adequate oxygenation. Continue albuterol and Advair supplemental O2 as needed with goal saturation 90% or above Additional Plan Downgrade to medical floor wi
[2019-11-12 16:23] LABS: Glucose Point of Care 140 (65-105)
--- NOTE | 2019-11-12 17:14 | ADMGEN ---
This patient, Tricia Otto, was admitted to med/surg Room 313. Patient/family oriented to hospital policies and general routines including ID bracelet, bed and alarms, visiting hours, pain management, procedures, bathroom and other care routines, personal items, smoking policy, room service/diet, and visiting hours. Valuables list has been completed. Information on how to activate the Rapid Response Team has been discussed. Patient/Family are encouraged to report perceived risks to care and to ask questions if they do not understand what they are told or what they should do.
[2019-11-12 17:45] LABS: Glucose Point of Care 129 (65-105)
[2019-11-12] MEDS: AMITRIPTYLINE HCL 25 MG TABLET PO (20:57)
[2019-11-12] MEDS: LATANOPROST 0.005% OP SOLN 2.5 ML BTL 1 DROP EACH EYE (20:57)
[2019-11-12] MEDS: MIRABEGRON 25 MG ER TABLET PO (20:57)
[2019-11-12] MEDS: PRAVASTATIN SODIUM 20 MG TABLET 40 MG PO (20:58)
[2019-11-12 21:12] LABS: Glucose Point of Care 160 (65-105)
[2019-11-13] VITALS (8 sets, daily range): BP systolic 97–119; BP diastolic 58–65; PULSE 60–108; RESP 18; TEMP 36.1–36.2; O2SAT 96–98
[2019-11-13] MEDS: ALBUTEROL SULFATE (*SP) AEROSOL 1 PUFF 2 PUFF INHALATION ×3 (01:10→13:21)
[2019-11-13] MEDS: GABAPENTIN 100 MG CAPSULE 200 MG PO ×2 (05:22→15:43)
[2019-11-13 06:32] LABS: Hemoglobin 9.5 g/dL (12.0-15.0); Mean Corpuscular HGB Conc 29.7 g/dl (32-36); Mean Corpuscular Hemoglobin 24.8 pg (26-34); Mean Corpuscular Volume 83.6 fl (80-100); Mean Platelet Volume 9.7 fl (7.4-10.4); Platelet Count Result 135 k/mm3 (150-375); Red Blood Count 3.83 M/mm3 (4.2-5.4); Red Cell Distribution Width 17.9 % (11.5-14.5); White Blood Count 4.9 K/mm3 (4.5-10.0)
[2019-11-13 06:48] LABS: Anion Gap 10 mmol/L (8-16); Blood Urea Nitrogen 20 mg/dL (7-17); Calcium 8.9 mg/dL (8.4-10.2); Carbon Dioxide 28 mmol/L (22-30); Chloride 99 mmol/L (98-107); Estimated CRCL calculation 40 ml/min; Estimated Glomerular Filt Rate 43; Glucose 135 mg/dL (65-105); Potassium 3.7 mmol/L (3.4-5.0); Sodium 137 mmol/L (137-145)
[2019-11-13] MEDS: FUROSEMIDE INJ 40 MG/4 ML VIAL IV PUSH (08:20)
[2019-11-13] MEDS: PANTOPRAZOLE 40 MG TABLET PO (08:21)
[2019-11-13] MEDS: sulfaSALAzine 500 MG TABLET 1000 MG PO (08:21)
[2019-11-13] MEDS: dilTIAZem HCL CD 180 MG CAP.ER.24H PO (08:21)
[2019-11-13] MEDS: FERROUS GLUCONATE 324 MG TABLET PO (08:22)
[2019-11-13] MEDS: CITALOPRAM HYDROBROMIDE 20 MG TABLET PO (08:22)
[2019-11-13] MEDS: LOSARTAN POTASSIUM 25 MG TABLET PO (08:23)
[2019-11-13] MEDS: METOPROLOL TARTRATE 50 MG TAB PO (08:23)
[2019-11-13] MEDS: FLUTICASONE/SALMETEROL 115-21 MCG INHALER 1 PUFF 2 PUFF INHALATION (09:07)
[2019-11-13 11:38] LABS: Glucose Point of Care 135 (65-105)
--- NOTE | 2019-11-13 15:25 | PM.DS ---
DS: Admitting Diagnosis Admitting Diagnosis Admitting Diagnosis: tachycardia,chf DS: Discharge Diagnosis Discharge Diagnosis (1) Atrial fibrillation: Qualifiers: Atrial fibrillation type: unspecified chronic Qualified Code(s): I48.20 - Chronic atrial fibrillation, unspecified Code(s): I48.91 - Unspecified atrial fibrillation Status: Chronic Assessment and Plan: Upon presentation, she was found to be in AFib with RVR which improved with IV Cardizem and Lopressor. She is established with Dr. Botello. She is not on chronic anticoagulation given history of GI bleed. She was seen in consultation by cardiology. Her PO metoprolol and diltiazem were continued and her rate was well controlled. She will follow up with cardiology as an outpatient in 2 days. (2) Congestive heart failure: Qualifiers: Heart failure chronicity: acute on chronic Heart failure type: systolic Qualified Code(s): I50.23 - Acute on chronic systolic (congestive) heart failure Code(s): I50.9 - Heart failure, unspecified Status: Acute Assessment and Plan: With evidence of volume overload. Echo performed 11/10 revealed EF 40-45% and indeterminate LV diastolic function, moderate , severe MR, severe TR, and moderate pulmonary hypertension. BNP was 5260. She was diuresed with 40 mg IV Lasix b.i.d. per Cardiology recommendations. She will continue 40 mg b.i.d. p.o. Lasix as an outpatient. Heart healthy diet was reinforced. Daily weights were discussed. (3) Hypertension: Qualifiers: Hypertension type: essential hypertension Qualified Code(s): I10 - Essential (primary) hypertension Code(s): I10 - Essential (primary) hypertension Status: Chronic Assessment and Plan: Blood pressures were evaluated and stable. In low-normal range. She remained asymptomatic. Continue metoprolol and losartan. Recommended monitoring blood pressures at home and recording for review by PCP. (4) Iron deficiency anemia due to chronic blood loss: Code(s): D50.0 - Iron deficiency anemia secondary to blood loss (chronic) Status: Chronic Assessment and Plan: Chronic. H&H is mildly low but is similar to baseline per review of prior labs. Her vitals are stable and she has no evidence of active bleeding. Iron panel revealed iron deficiency with low and saturation. She was started on p.o. iron supplementation which she will continue as an outpatient. Repeat H&H in 1 week. 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 Blood sugars were monitored closely and well controlled with SSI. Continue saxagliptin. Recommended monitoring blood sugars at home 3 times per day and recording. (6) Crohn's disease of large intestine with other complication: Code(s): K50.118 - Crohn's disease of large intestine with other complication Status: Chronic Assessment and Plan: Chronic with no acute issues. She is on sulfasalazine. She is scheduled to establish care with Dr. Sutton as an outpatient based on referral by her PCP. (7) Chronic obstructive pulmonary disease, unspecified: Qualifiers: COPD type: unspecified COPD Qualified Code(s): J44.9 - Chronic obstructive pulmonary disease, unspecified Code(s): J44.9 - Chronic obstructive pulmonary disease, unspecified Status: Chronic Assessment and Plan: Continue albuterol and Advair. DS: Summary Hospital Course Reason for hospitalization: Tachycardia Hospital Course: Date of admission: 11/10/2019 Date of discharge: 11/13/2019 Tricia Vernon
--- NOTE | 2019-11-13 15:43 | PC.NURSE ---
SPKE WITH DR TROY REGARDING D/C AND LASIX AND LOW BP 97/58 ORDERS RECEIVED TO CONT. EVERY THING IS OK FOR DISCHARGE HOME. PT ALWAYS RUNS A SOFT BP. THEN [facility] WAS CALLED PER HER REQUEST AND REPORTED WHAT DR GARCIA SAID AND REPORTED THE LOW BP. NO ORDERS RECEIVED, BUT TO GO ON WITH THE DISCHARGE.
== END 2019-11-13 17:00 | disposition home or self-care (01) | DRG 291 ==
LOC: ANHED 15:39 → ANHIMU 16:35 → ANH3MEDSUR 11-13 15:25 → ANHIMU 11-15 14:01
PROVIDERS: Nurse Practitioner; Physician Assistant; Admitting Provider Internal Medicine; Emergency Provider General Practice; PCP Internal Medicine; Visit Provider Family Medicine
DX: I13.0 Hypertensive heart and chronic kidney disease with heart failure and stage 1 through stage 4 chronic kidney disease, or unspecified chronic kidney disease (principal); I50.23 Acute on chronic systolic (congestive) heart failure; I48.20 Chronic atrial fibrillation, unspecified; K50.118 Crohn's disease of large intestine with other complication; I27.20 Pulmonary hypertension, unspecified; E11.22 Type 2 diabetes mellitus with diabetic chronic kidney disease; E11.42 Type 2 diabetes mellitus with diabetic polyneuropathy; N18.3 Chronic kidney disease, stage 3 (moderate); I08.3 Combined rheumatic disorders of mitral, aortic and tricuspid valves; J44.9 Chronic obstructive pulmonary disease, unspecified; D50.0 Iron deficiency anemia secondary to blood loss (chronic); E78.5 Hyperlipidemia, unspecified; H40.9 Unspecified glaucoma; Z86.19 Personal history of other infectious and parasitic diseases; Z79.899 Other long term (current) drug therapy; Z87.891 Personal history of nicotine dependence; Z99.81 Dependence on supplemental oxygen; Z98.49 Cataract extraction status, unspecified eye; Z96.653 Presence of artificial knee joint, bilateral
CPT/HCPCS: 36415; 71045; 74018; 80048; 80053; 82728; 83036; 83540; 83550; 83735; 83880; 84443; 84484; 85025; 85027; 85610; 85730; 93005; 93306; 94640; 96374; 96375; 96376; 99285; A9270; J1940

== ENCOUNTER 2019-12-28 10:42 | Outpatient (CLI) | payer MEDICARE, SELFPAY ==
--- NOTE | ~2019-12-28 | XR_ITS ---
XR lumbar spine 2-3V DATE: 12/28/2019 11:42 INDICATION: Mid low back pain. No injury. TECHNIQUE: AP, lateral, coned lateral lumbosacral views COMPARISON: 03/02/2018 lumbar spine FINDINGS: There is prominent diffuse osteopenia. There is levoscoliosis of the thoracolumbar spine. There are 6 functional lumbar vertebrae. There is moderate degenerative disc disease at L1-2, L2-3, L3-4 and severe degenerative disease at L5 6 and L6 S1. No fracture or bone destruction is evident. The pedicles are intact. The sacral iliac joints appear normal. There is extensive calcification of the abdominal aorta and common iliac arteries. IMPRESSION: Diffuse osteopenia Multilevel degenerative disc disease Reviewed, dictated and finalized at location B.
== END 2019-12-28 10:43 | disposition home or self-care (01) ==
LOC: ANHIMG 10:50
PROVIDERS: PCP Internal Medicine; Visit Provider Internal Medicine
DX: M51.36 Other intervertebral disc degeneration, lumbar region (principal); M85.88 Other specified disorders of bone density and structure, other site
CPT/HCPCS: 72100

== ENCOUNTER 2020-02-03 13:25 | Outpatient (CLI) | payer MEDICARE, SELFPAY ==
--- NOTE | ~2020-02-03 | MR_ITS ---
EXAMINATION: MR lumbar spine wo con DATE: 02/03/2020 14:13 INDICATION: Lumbago and sciatica. TECHNIQUE: Magnetic resonance imaging (MRI) of the lumbar spine was performed without intravenous con trast. Sequences included sagittal T2-weighted FSE, sagittal STIR FSE, sagittal T1-weighted FSE, and axial T2-weighted FSE. COMPARISON: Lumbar spine MRI 01/06/2013 FINDINGS: There is 6 degrees levocurvature of lumbar spine. Vertebral body heights are normal. There is mildly decreased disc height at L1-L2 and L2-L3, moderately decreased disc height at L3-L4, severe ly decreased disc height at L4-L5, and moderately decreased disc height at L5-S1. The distal spinal c ord signal intensity is normal. The conus medullaris is at L1-L2. The following disc levels are speci fically discussed: L1-L2: The disc is bulging and has an annular fissure. There is mild bilateral facet joint osteoarthr itis. There is mild bilateral neural foraminal stenosis. There is mild central canal stenosis. L2-L3: The disc is bulging as an annular fissure. There is mild bilateral facet joint osteoarthritis. There is mild bilateral neural foraminal stenosis. There is mild central canal stenosis. L3-L4: The disc is bulging and has an annular fissure. There is mild bilateral facet joint osteoarthr itis. There is moderate bilateral neural foraminal stenosis. There is moderate central canal stenosis . L4-L5: The disc is bulging and has an annular fissure. There is moderate right and severe left facet joint osteoarthritis. There is moderate bilateral neural foraminal stenosis. There is mild central ca nal stenosis. L5-S1: The disc is bulging and has an annular fissure. There is severe bilateral facet joint osteoart hritis. There is mild bilateral neural foraminal stenosis. There is mild central canal stenosis. IMPRESSION: 1. Severe lumbar spondylosis, worsened from 01/06/2013. Reviewed, dictated and finalized at location A. 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
== END 2020-02-03 13:26 | disposition home or self-care (01) ==
PROVIDERS: PCP Internal Medicine; Visit Provider Nurse Practitioner
DX: M47.817 Spondylosis without myelopathy or radiculopathy, lumbosacral region (principal)
CPT/HCPCS: 72148

== ENCOUNTER 2020-02-20 09:00 | Outpatient (RCR) | payer MEDICARE, SELFPAY ==
--- NOTE | 2020-01-23 09:57 | PTOPEVAL ---
PHYSICAL THERAPY EVALUATION AND PLAN OF CARE Thank you for referring Tricia Otto to [facility] The patient is scheduled to be seen for therapy? 2x/week for 4 weeks. Please review, sign, date and return this plan of care KAYY. I agree with and certify that the following plan of care is medically necessary. Referring Physician Date Attending Provider: Josr James, DO Evaluation Cardiovascular History Hx Atrial Fibrillation Yes Hx Congestive Heart Failure Yes Hx Hypercholesterolemia Yes Hx Hypertension Yes Hx Other Cardiac Disorders Yes: cardioversion Respiratory History Hx Chronic Obstructive Pulmonary Disease Yes (COPD) Gastrointestinal History Hx Appendectomy Yes Hx Crohn's Disease Yes Hx Diverticulitis Yes Hx Polyps Yes Musculoskeletal History Hx Arthritis Yes Hx Back Pain Yes Hx Orthopedic Surgery Yes: Rtka, Ltka Hx Other Musculoskeletal Disorders Yes: ORIF Left hip Hematological History Hx Anemia Yes Hx Blood Transfusions Yes Endocrine History Hx Diabetes Yes HEENT History Hx Glaucoma Yes: bilateral Reproductive History Hx Hysterectomy Yes Diagnosis back pain Onset May 2019 Subjective Information Tricia is here today with c/o Query Text:As Reported By Patient/ back pain. She was diagnosed Family with Covid-19 in May 2019 and hospitalized. She started to experience back pain at that time. She started using a cane because of the back pain . She can only stand or do work for 10-15 minutes. Arthritis creams and medications do not help with the pain. Self Report Pain Assessment Bilateral Spine, Lumbar Reported Pain Level 0 Pain Description Aching Pain Frequency Chronic,Continuous Lowest Pain Intensity 0 Greatest Pain Intensity 8 Pain Aggravating Factors Walking,Weight Bearing/ Standing Pain Behaviors Guarding Pain Score Pain Score 0: Self Report Interventions Used Interventions Used By Clinicians Exercise,Heat Pain Relief Interventions Used By Inactivity/Rest Patient Other Alleviating Interventions arthritis medication Cervical and Lumbar ROM Lumbar ROM Lumbar Flexion (0-90) 30 Query
--- NOTE | 2020-02-02 09:46 | PCPTNOTE ---
Patient cancelled apt this date due to illness.
--- NOTE | 2020-02-14 10:18 | PCPTNOTE ---
Patient called & cancelled scheduled appointment this date due to not feeling well.
--- NOTE | 2020-02-20 09:30 | PTOPEVAL ---
PHYSICAL THERAPY DISCHARGE NOTE Thank you for referring Tricia Otto to [facility] [place] Please review, sign, date and return this plan of care KAYY. I agree with and certify that the following plan of care is medically necessary. Referring Physician Date Attending Provider: Josr James DO Diagnosis back pain Onset May 2019 Subjective Information Tricia has been participating Query Text:As Reported By Patient/ in PT for chronic back pain. Family Does not feel that therapy is making a difference for her. She did injections that felt ok for a little bit but she doesn't feel they went low enough with the injection so it did not last. Self Report Pain Assessment Bilateral Spine, Lumbar Reported Pain Level 6 Pain Description Aching,Tightness Pain Aggravating Factors Walking,Weight Bearing/ Standing Pain Behaviors Anxious,Guarding Pain Score Pain Score 6: Self Report Interventions Used Interventions Used By Clinicians Exercise Pain Relief Interventions Used By Exercise Patient Cervical and Lumbar ROM Lumbar ROM Lumbar Flexion (0-90) 30 Query Text:Active in Degrees Lumbar Flexion Active Ankle Query Text:Hands to: Lumbar Extension (0-40) 0 Query Text:Active in Degrees Lateral Rotation Right (0-45) 15 Query Text:Active in Degrees Lateral Rotation Left (0-45) 15 Query Text:Active in Degrees Lumbar Comments lumbar extension: -11deg Lower Extremity Muscle Strength Testing Hip Strength Right Hip Flexion Strength 4 Good Hip Extension Strength 3 Fair Hip Abduction Strength 4- Good - Left Hip Flexion Strength 3+ Fair + Hip Extension Strength 3 Fair Hip Abduction Strength 3+ Fair + Knee Strength Bilateral Knee Flexion Strength 4+ Good + Knee Extension Strength 4+ Good + Posture Posture Standing Position Posture Evaluation View Posterior Head/C-Spine Posture Neutral Position Thoracic Spine Posture Fixed Scoliosis on (L), Increased Kyphosis Lumbar Spine Posture Flattened,Fixed Scoliosis on ( L) Shoulder Posture Neutral Balance Assessment Time Up Go (TUG) Timed Up and Go Test (TUG) (Seconds) 19 Assistive Devices None Comments 1month ago = 23seconds 5 Time Sit to Stand Time in Seconds
== END 2020-02-20 12:02 | disposition home or self-care (01) ==
LOC: ANHPT 09:00
PROVIDERS: PCP Internal Medicine; Visit Provider Internal Medicine
DX: M54.9 Dorsalgia, unspecified (principal)
CPT/HCPCS: 97014; 97110; 97162; G0283

== ENCOUNTER → 2020-07-13 01:39 | Outpatient (CLI) | payer MEDICARE, SELFPAY ==
[2020-07-13 19:39] LABS: SARS-CoV-2 RNA PCR Negative
== END ==
PROVIDERS: PCP Internal Medicine; Visit Provider Specialist
DX: Z01.818 Encounter for other preprocedural examination (principal); Z20.822 Contact with and (suspected) exposure to COVID-19
CPT/HCPCS: C9803; U0003; U0005

== ENCOUNTER 2020-07-16 00:59 | Day surgery (SDC) | payer MEDICARE, SELFPAY ==
[2020-07-13 19:17] VITALS: BMI 28.1
[2020-07-16] VITALS (20 sets, daily range): BP systolic 105–133; BP diastolic 63–87; PULSE 121–128; RESP 16–22; TEMP 36.3–36.8; O2SAT 90–99; BMI 29.5
[2020-07-16] MEDS: SODIUM CHLORIDE 0.9% IV 500 ML 100 ML IV CONT (08:30)
[2020-07-16 08:46] LABS: Basophils Percent Auto 0.7 % (0.2-1.2); Eosinophils Absolute Auto 0.1 K/mm3 (0-0.3); Eosinophils Percent Auto 1.2 % (0-4.4); Hematocrit 28.4 % (37.0-47.0); Hemoglobin 7.7 g/dL (12.0-15.0); Immature Granulocyte Absolute 0.03 K/mm3 (0.00-0.031); Immature Granulocyte Percent A 0.5 % (0-0.5); Lymphocytes Percent Auto 13.9 % (18.3-44.2); Mean Corpuscular HGB Conc 27.1 g/dl (32-36); Mean Corpuscular Hemoglobin 20.7 pg (26-34); Mean Corpuscular Volume 76.3 fl (80-100); Mean Platelet Volume 9.4 fl (7.4-10.4); Monocytes Absolute Auto 0.4 K/mm3 (0.1-0.6); Monocytes Percent Auto 7.5 % (2.6-8.5); Neutrophils Absolute Auto 4.4 K/mm3 (1.3-6.7); Neutrophils Percent Auto 76.2 % (45.5-73.1); Platelet Count Result 163 k/mm3 (150-375); Red Blood Count 3.72 M/mm3 (4.2-5.4); Red Cell Distribution Width 17.5 % (11.5-14.5); White Blood Count 5.7 K/mm3 (4.5-10.0)
[2020-07-16 08:55] LABS: Anion Gap 11 mmol/L (8-16); Blood Urea Nitrogen 19 mg/dL (7-17); Calcium 9.2 mg/dL (8.4-10.2); Carbon Dioxide 25 mmol/L (22-30); Chloride 102 mmol/L (98-107); Estimated CRCL calculation 43 ml/min; Estimated Glomerular Filt Rate 48; Glucose 128 mg/dL (65-105); Sodium 138 mmol/L (137-145)
[2020-07-16 08:57] LABS: Hypochromasia 1+ (NORMAL); Platelet Estimate Adequate (Adequate)
[2020-07-16 09:04] LABS: INR 1.3; Prothrombin Time 16.7 Seconds (11.1-14.7)
--- NOTE | 2020-07-16 10:09 | WPDMODSED ---
Moderate Sedation Note-Pt Data Patient Data Diagnosis: Aortic stenosis / mitral regurgitation chronic atrial fibrillation secondary pulmonary hypertension Present Complaint: this is a 79-year-old woman with chronic atrial fibrillation and the above-described aortic and mitral valve disease. Right and left heart catheterization is requested in scheduled for today in anticipation of consultation with cardiothoracic surgery. Procedure to be performed/Plan: Right and left heart catheterization Allergies Allergy/AdvReac Type Severity Reaction Status Date / Time tolterodine Allergy Severe Itching Verified 07/13/20 18:18 alendronate sodium Allergy Mild canker Verified 07/13/20 18:18 sores in mouth estradiol Allergy Mild canker Verified 07/13/20 18:18 sores in mouth Estrogens Allergy Mild SEVERE Verified 07/13/20 18:18 ITCHING estrogens, conjugated Allergy Mild canker Verified 07/13/20 18:18 sores in mouth glipizide Allergy Mild Nausea and Verified 07/13/20 18:18 Vomiting levonorgestrel Allergy Mild Rash Verified 07/13/20 18:18 metformin Allergy Mild Nausea and Verified 07/13/20 18:18 Vomiting paroxetine Allergy Mild Nausea and Verified 07/13/20 18:58 Vomiting warfarin Allergy Mild Rash Verified 07/13/20 18:55 atorvastatin AdvReac Mild canker Verified 07/13/20 18:58 sores in mouth Home Medications Medication Instructions Recorded Confirmed Type furosemide 40 mg PO BID 01/14/19 07/16/20 History metoprolol tartrate 50 mg PO Q12H 01/14/19 07/16/20 History travoprost [Travatan Z] 1 drp OPHTHALMIC (EYE) QPM 01/14/19 07/16/20 History pravastatin 40 mg tablet 40 mg PO HS #90 tablet 09/28/19 07/16/20 Rx amitriptyline 25 mg PO HS 11/10/19 07/16/20 History citalopram 20 mg PO DAILY 11/10/19 07/16/20 History fluticasone propion-salmeterol 1 inh INHALATION Q12H 11/10/19 07/16/20 History [Advair Diskus] losartan 25 mg PO DAILY 11/10/19 07/16/20 History sulfasalazine 1,000 mg PO BID 11/10/19 07/16/20 History omeprazole 40 mg capsule,delayed 40 mg PO BID #180 cap 02/29/20 07/16/20 Rx release gabapentin 100 mg capsule 200 mg PO TID #540 cap 06/04/20 07/16/20 Rx albuterol sulfate [ProAir HFA] 2 puff INHALATION Q4-6H PRN 07/13/20 07/16/20 History diltiazem HCl [Cartia XT] 180 mg PO Q12H 07/13/20 07/16/20 History glimepiride [Amaryl] 2 mg PO DAILY 07/13/20 07/16/20 History triamcinolone acetonide 1 applic DENTAL BID 07/13/20 07/16/20 History saxagliptin [Onglyza] 2.5 mg PO DAILY 07/16/20 07/16/20 History Current Medications: Active Medications Sodium Chloride (Normal Saline Iv) 500 mls @ 100 mls/hr IV CONT .Q5H LAURI Sedation/Anesthesia: No previous sedation/anesthesia problems (including family history). [facility] Past Medical History Medical History Anemia of chronic disease Aortic stenosis Atrial fibrillation Benign essential hypertension Chronic kidney disease, stage III (moderate) Chronic obstructive pulmonary disease, unspecified Diverticulitis Glaucoma Hypertension Pulmonary hypertension S/P ORIF (open reduction internal fixation) fracture left hip Type 2 diabetes mellitus with diabetic polyneuropathy Surgical History Surgical History Cataract extraction status H/O rectal polypectomy H/O repair of left rotator cuff H/O tubal ligation H/O: hysterectomy History of appendectomy History of bladder surgery History of tonsillectomy History of total knee replacement (TKR) bilateral Family History Family History Father Carcinoma of colon Family history of malignant neoplasm Sibling Family history of heart disease in male family member before age 55 brother Cerebrovascular accident Heart disease Mother Failure to thrive Social History Social History (Updated 01/31/20 @ 08:54
--- NOTE | 2020-07-16 11:43 | SUR.PHASEII ---
BEGIN PHASE II RECOVERY. 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 TROY. AWAKE AND ALERT. DENIES CP OR SOB ON ARRIVAL. TRANSFERRED TO BED. MONITOR ST VS. AFIB IN 120'S. BP STABLE. R. GROIN SITE WITH INTACT SHEATHS X 2. R. FEM ARTERY WITH 6FR SHEATH, R. FEM VEIN WITH 7FR SHEATH. SITE SOFT, NONTENDER. NO BLEEDING OR HEMATOMA NOTED. R. PEDAL PULSE PALP WEAK. IVF'S RUNNING. REVIEWED BEDREST ACTIVITY RESTRICTIONS W/ PT. WILL CONTINUE TO MONITOR.
--- NOTE | 2020-07-16 13:24 | WPDCARDPROC ---
Cardiac Cath Procedure Note Date of procedure:: 07/16/20 Performing physician:: Tyrell Philip MD Indication:: aortic and mitral valve disease admitted for elective right left heart catheterization prior to cardiothoracic surgery consultation Brief clinical history:: this 79-year-old woman with chronic atrial fibrillation has significant mitral regurgitation as well as critical aortic stenosis being brought to the electronic lab technician today for right left heart catheterization in anticipation cardiothoracic surgery consultation for surgical treatment of her valve disease. Patient does not have coronary disease documented prior to this. Echocardiogram does suggest evidence of significant pulmonary hypertension. Procedure Procedure performed:: Right and left heart catheterization Sedation/Medication given:: fentanyl 50 mg case start time 10:24 a.m. case end time 11:32 a.m. sedation provided by jose francisco Marcelino RN, trained observer Access site:: right femoral artery, right femoral vein Estimated blood loss:: 20-30 cc Procedure note:: patient was brought to the cardiac catheterization lab in the postabsorptive state the right femoral triangle was prepped and draped in the usual fashion. Anesthesia was provided with 1% lidocaine infiltrated locally. Using the modified Seldinger technique a 6 Israeli 45 cm long sheath was placed into the aorta. The femoral vein was punctured and a standard 7 Israeli vascular sheath was placed in the femoral vein. I then proceeded with right heart catheterization the standard C-shaped Hopewell-Wendi catheter would not advance through the tricuspid valve into the right ventricle very well because of severe TR and pulmonary hypertension. I used a Hopewell wire and was unable to maintain position in the right ventricle. I then withdrew this catheter and replaced it with an S tip Hopewell-Wendi catheter. Once again a Hopewell wire had to be used to access the right ventricle and with some effort the 1 wire was advanced to had of the catheter in the RV outflow tract and ultimately I was able to advance the catheter out into the pulmonary artery and the pulmonary capillary wedge position. After this thermodilution cardiac outputs injected and right-sided hemodynamics were documented. Av O2 difference was then sample. The Hopewell-Wendi catheter was then withdrawn. I then used a 5 Israeli angled pigtail catheter advanced into the aortic root through the long 6 Israeli arterial sheath. The side arm of the sheath was used to measure simultaneous pressures with the the pigtail. Using a straight wire I probed the stenotic aortic valve for a while and was unable to enter the left ventricle. The pigtail catheter was then withdrawn. I advanced the 6 Israeli JR4 coronary catheter to the aortic root directed a straight wire into the plane of the stenotic aortic valve and was able to successfully enter the left ventricle. The JR4 catheter was advanced into the LV and using a long 260 cm exchange wire I maintained position in the LV and place the pigtail catheter across the stenotic valve into the left ventricle. Simultaneous LV and aortic pressures were documented and using the thermodilution and the Jeannie cardiac outputs the aortic valve area was calculated. Following this a left ventriculogram was done in the 30 degree DC projection. The pigtail catheter was then withdrawn. The left coronary artery was then engaged and injected using a standard 5 Israeli FL4 catheter. The right coronary was engaged and injected using the standard 5 Israeli JR4 catheter. A femoral angiogram was done through the sheath after which it was determined the catheter he needed to be removed with direct manual compression. The long sheath was exchanged over a guidewire for a standard 6 Israeli sheath the patient was taken to the holding area for sheath removal and recovery. Procedure was uncomplicated there was no groin hematoma upon leaving the electronic lab technician. Findings:: Hemodynamics: Mean
--- NOTE | 2020-07-16 13:30 | SUR.PHASEII ---
HEMOSTASIS ACHIEVED AFTER MANUAL PULL AND PRESSURE HOLD TO R. GROIN ARTERIAL AND VENOUS PUNCTURE SITES BY WAQAS Wang RN. VENOUS SITE HELD 10 MINUTES, ARTERIAL SITE HELD 32 MINUTES UNTIL HEMOSTASIS. TOLERATED WELL. ARTERIAL SITE DRESSED W/ STAT SEAL AND TEGADERM; VENOUS SITE DRESSED WITH FOLDED GUAZE AND TEGADERM. NOW BEDREST X 6 HOURS. REVIEWED BEDREST ACTIVITY RESTRICTIONS. 16F MARTINEZ CATHETER INSERTED PRIOR TO SHEATH PULL AT 1235 DRAINING CLEAR YELLOW URINE. INSERTED DUE TO INABILITY TO VOID ON BEDPAN WHILE ON BEDREST. WILL CONTINUE TO MONITOR.
[2020-07-16] MEDS: HYDROcodone/acetaminophen (*CRX) 5-325 MG TABLET 1 TAB PO (16:57)
== END 2020-07-16 21:55 | disposition home or self-care (01) ==
PROVIDERS: PCP Internal Medicine; Visit Provider Specialist
PROC: 4A023N8 Measurement of Cardiac Sampling and Pressure, Bilateral, Percutaneous Approach (ICD-10-PCS; CPT 93453; principal; 2020-07-16 10:00)
DX: Z01.810 Encounter for preprocedural cardiovascular examination (principal); I48.19 Other persistent atrial fibrillation; I35.0 Nonrheumatic aortic (valve) stenosis; I34.0 Nonrheumatic mitral (valve) insufficiency; I13.0 Hypertensive heart and chronic kidney disease with heart failure and stage 1 through stage 4 chronic kidney disease, or unspecified chronic kidney disease; N18.30 Chronic kidney disease, stage 3 unspecified; I27.20 Pulmonary hypertension, unspecified; K57.92 Diverticulitis of intestine, part unspecified, without perforation or abscess without bleeding; E11.22 Type 2 diabetes mellitus with diabetic chronic kidney disease; Z87.891 Personal history of nicotine dependence; E11.42 Type 2 diabetes mellitus with diabetic polyneuropathy; I50.30 Unspecified diastolic (congestive) heart failure; E78.5 Hyperlipidemia, unspecified; K50.90 Crohn's disease, unspecified, without complications; J44.9 Chronic obstructive pulmonary disease, unspecified; Z87.11 Personal history of peptic ulcer disease; Z87.898 Personal history of other specified conditions; Z86.16 Personal history of COVID-19; R06.02 Shortness of breath; R53.83 Other fatigue; K21.9 Gastro-esophageal reflux disease without esophagitis; Z79.01 Long term (current) use of anticoagulants; Z79.51 Long term (current) use of inhaled steroids; I36.1 Nonrheumatic tricuspid (valve) insufficiency; D50.0 Iron deficiency anemia secondary to blood loss (chronic)
CPT/HCPCS: 36415; 80048; 85025; 85610; 93460; A9270; C1769; C1887; C1894; C9803; J0461; J1644; J2250; J3010; J7040; U0003; U0005

== ENCOUNTER → 2020-08-21 06:55 | Outpatient (CLI) | payer MEDICARE, SELFPAY ==
[2020-08-22 19:27] LABS: SARS-CoV-2 RNA PCR Negative
== END ==
PROVIDERS: PCP Internal Medicine
DX: Z20.822 Contact with and (suspected) exposure to COVID-19 (principal); R09.89 Other specified symptoms and signs involving the circulatory and respiratory systems
CPT/HCPCS: C9803; U0003; U0005

== ENCOUNTER → 2021-07-20 00:10 | Outpatient (CLI) | payer OTHER, SELFPAY ==
[2021-07-20 14:08] LABS: SARS-CoV-2 RNA PCR Negative
== END ==
PROVIDERS: PCP Internal Medicine; Visit Provider Internal Medicine Cardiovascular Disease
DX: Z01.812 Encounter for preprocedural laboratory examination (principal); Z20.822 Contact with and (suspected) exposure to COVID-19
CPT/HCPCS: C9803; U0003; U0005

== ENCOUNTER 2021-07-23 01:36 | Day surgery (SDC) | payer OTHER, SELFPAY ==
[2021-07-22 12:41] VITALS: BMI 21.4
[2021-07-23] VITALS (17 sets, daily range): BP systolic 87–107; BP diastolic 58–70; PULSE 87–94; RESP 16–22; TEMP 36.4; O2SAT 97–100; BMI 21.7
--- NOTE | 2021-07-23 08:37 | WPDHPUPDATE1 ---
History and Physical Update Update Date/Time: 07/23/21 08:37 Patient status post aortic valve replacement, mitral valve repair and tricuspid valve repair in August 2020 with a very long postop course and long recovery. She has had ongoing problems with diastolic heart failure, primarily right-sided, with severe pulmonary hypertension. She has required paracentesis. She has history of paroxysmal atrial fibrillation but has been off anticoagulation because of some problems with GI bleeding. History of chronic kidney disease and anemia as well as Crohn's disease. Echo 04/2021 showed mild global hypokinesis, EF 48%, diastolic dysfunction, moderate RV enlargement and hypokinesis, mitral valve and aortic valve function well, severe tricuspid regurgitation, RVSP of 68 mm Hg. She is undergoing a right and possibly a left heart catheterization to re-evaluate the pulmonary hypertension and hemodynamics to see if there is anything else we can do to help her with her CHF. No plan for IV contrast or coronary angiography. History and Physical has been reviewed, including an updated exam of the patient. There are NO changes in the patient's condition. Risks, benefits, and alternatives have been discussed and questions answered. Patient agrees to proceed with procedure.
[2021-07-23 09:58] LABS: Basophils Percent Auto 0.6 % (0.2-1.2); Eosinophils Absolute Auto 0.1 K/mm3 (0-0.3); Eosinophils Percent Auto 1.5 % (0-4.4); Hematocrit 27.6 % (37.0-47.0); Hemoglobin 7.7 g/dL (12.0-15.0); Immature Granulocyte Absolute 0.02 K/mm3 (0.00-0.031); Immature Granulocyte Percent A 0.4 % (0-0.5); Lymphocytes Percent Auto 9.7 % (18.3-44.2); Mean Corpuscular HGB Conc 27.9 g/dl (32-36); Mean Corpuscular Hemoglobin 25.2 pg (26-34); Mean Corpuscular Volume 90.2 fl (80-100); Mean Platelet Volume 10.2 fl (7.4-10.4); Monocytes Absolute Auto 0.4 K/mm3 (0.1-0.6); Monocytes Percent Auto 7.1 % (2.6-8.5); Neutrophils Absolute Auto 4.2 K/mm3 (1.3-6.7); Neutrophils Percent Auto 80.7 % (45.5-73.1); Platelet Count Result 114 k/mm3 (150-375); Red Blood Count 3.06 M/mm3 (4.2-5.4); Red Cell Distribution Width 15.9 % (11.5-14.5); White Blood Count 5.2 K/mm3 (4.5-10.0)
[2021-07-23 10:12] LABS: Anion Gap 11 mmol/L (8-16); Blood Urea Nitrogen 64 mg/dL (7-17); Calcium 8.9 mg/dL (8.4-10.2); Carbon Dioxide 20 mmol/L (22-30); Chloride 107 mmol/L (98-107); Estimated CRCL calculation 28 ml/min; Estimated Glomerular Filt Rate 33; Glucose 116 mg/dL (65-110); Potassium 4.3 mmol/L (3.4-5.0); Sodium 138 mmol/L (137-145)
[2021-07-23 10:13] LABS: INR 1.4; Prothrombin Time 16.9 Seconds (11.1-14.7)
[2021-07-23 10:15] LABS: Hypochromasia 1+ (NORMAL); Platelet Estimate Decreased (Adequate)
[2021-07-23 10:16] LABS: Ovalocytes 1+ (NORMAL)
--- NOTE | 2021-07-23 10:57 | WPDMODSED ---
Moderate Sedation Note-Pt Data Patient Data Diagnosis: Pulmonary hypertension, right heart failure Present Complaint: Patient status post aortic valve replacement, mitral valve repair and tricuspid valve repair in August 2020 with a very long postop course and long recovery. She has had ongoing problems with diastolic heart failure, primarily right-sided, with severe pulmonary hypertension. She has required paracentesis. She has history of paroxysmal atrial fibrillation but has been off anticoagulation because of some problems with GI bleeding. History of chronic kidney disease and anemia as well as Crohn's disease. Echo 04/2021 showed mild global hypokinesis, EF 48%, diastolic dysfunction, moderate RV enlargement and hypokinesis, mitral valve and aortic valve function well, severe tricuspid regurgitation, RVSP of 68 mm Hg. She is undergoing a right and possibly a left heart catheterization to re-evaluate the pulmonary hypertension and hemodynamics to see if there is anything else we can do to help her with her CHF. No plan for IV contrast or coronary angiography. Procedure to be performed/Plan: Conscious sedation Right heart catheterization Possible left heart catheterization to obtain left ventricular end-diastolic pressure Allergies Allergy/AdvReac Type Severity Reaction Status Date / Time tolterodine Allergy Severe Itching Verified 07/22/21 12:37 alendronate sodium Allergy Mild canker Verified 07/22/21 12:37 sores in mouth estradiol Allergy Mild canker Verified 07/22/21 12:37 sores in mouth Estrogens Allergy Mild SEVERE Verified 07/22/21 12:37 ITCHING estrogens, conjugated Allergy Mild canker Verified 07/22/21 12:37 sores in mouth glipizide Allergy Mild Nausea and Verified 07/22/21 12:37 Vomiting levonorgestrel Allergy Mild Rash Verified 07/22/21 12:37 metformin Allergy Mild Nausea and Verified 07/22/21 12:37 Vomiting paroxetine Allergy Mild Nausea and Verified 07/22/21 12:37 Vomiting warfarin Allergy Mild Rash Verified 07/22/21 12:37 atorvastatin AdvReac Mild canker Verified 07/22/21 12:37 sores in mouth Home Medications Medication Instructions Recorded Confirmed Type pravastatin 40 mg tablet 40 mg PO HS #90 tablet 09/28/19 07/22/21 Rx acetaminophen 500 mg capsule 500 mg PO Q6H PRN 04/22/21 07/22/21 History amiodarone 200 mg tablet 200 mg PO DAILY 04/22/21 07/22/21 History bumetanide 2 mg tablet 1 mg PO TID 04/22/21 07/23/21 History docusate sodium 100 mg capsule 100 mg PO BID 04/22/21 07/22/21 History Aurora 5 - 325 mg PO PRN 07/22/21 07/22/21 History ferrous sulfate 325 mg PO DAILY 07/22/21 07/22/21 History potassium chloride 20 meq PO BID 07/22/21 07/22/21 History amitriptyline 25 mg PO HS 07/23/21 07/23/21 History carvedilol 12.5 mg PO DAILY 07/23/21 07/23/21 History cholecalciferol (vitamin D3) 125 mcg PO DAILY 07/23/21 07/23/21 History cyproheptadine 4 mg PO HS 07/23/21 07/23/21 History mirabegron [Myrbetriq] 25 mg PO HS 07/23/21 07/23/21 History Current Medications: Active Medications Sodium Chloride (Normal Saline Iv) 500 mls @ 100 mls/hr IV CONT .Q5H LAURI Sedation/Anesthesia: No previous sedation/anesthesia problems (including family history). [facility] Past Medical History Medical History Anemia of chronic disease Aortic stenosis Atrial fibrillation Benign essential hypertension Chronic kidney disease, stage III (moderate) Chronic obstructive pulmonary disease, unspecified Diverticulitis Glaucoma Hypertension Pulmonary hypertension Type 2 diabetes mellitus with diabetic polyneuropathy Surgical History Surgical History (Updated 07/23/21 @ 11:01 by Kylee Botello MD) Cataract extraction status H/O aortic valve replacement with tissue graft August 2020, 23 mm Magna Ease bioprosthetic valve, Dwayne H/O mitral valve repair August 2020, 28 mm annuloplasty band, Dwayne H/O rectal polypectomy H
--- NOTE | 2021-07-23 12:19 | PM.OP ---
Procedure Note - Brief Procedure Note - Brief Date of procedure: 07/23/21 Pre-op diagnosis: pulmonary hypertension, severe tricuspid regurgita Post-op diagnosis: Same Procedure performed: conscious sedation Right heart catheterization Left heart catheterization for left ventricular pressures Thermodilution cardiac output Jeannie cardiac output Description of procedure: uneventful right and left heart catheterization Anesthesia: local ( with conscious sedation) Surgeon: Kylee Botello MD Estimated blood loss (mL): 15 Drains: No Packing: No Pathology: None sent Complications: No immediate complications Condition: Stable Disposition: Observation Findings: Pulmonary hypertension with a RA mean pressure of 22 mmHg, RV 63/11 mmHg chronic PA pressure of 64/43, mean 26 mmHg, wedge pressure 22 mmHg, LV pressure 110/ 11 mmHg Patient appears to have pulmonary hypertension not due to left heart failure. Will refer to a pulmonary hypertension specialist at [facility] for further evaluation and treatment
--- NOTE | 2021-07-23 12:23 | WPDCARDPROC ---
Cardiac Cath Procedure Note Date of procedure:: 07/24/21 Performing physician:: Kylee Botello MD Indication:: Evaluation of pulmonary hypertension Brief clinical history:: Patient status post aortic valve replacement, mitral valve repair and tricuspid valve repair in August 2020 with a very long postop course and long recovery. She has had ongoing problems with diastolic heart failure, primarily right-sided, with severe pulmonary hypertension. She has required paracentesis. She has history of paroxysmal atrial fibrillation but has been off anticoagulation because of some problems with GI bleeding. History of chronic kidney disease and anemia as well as Crohn's disease. Echo 04/2021 showed mild global hypokinesis, EF 48%, diastolic dysfunction, moderate RV enlargement and hypokinesis, mitral valve and aortic valve function well, severe tricuspid regurgitation, RVSP of 68 mm Hg. She is undergoing a right and possibly a left heart catheterization to re-evaluate the pulmonary hypertension and hemodynamics to see if there is anything else we can do to help her with her CHF. No plan for IV contrast or coronary angiography. Procedure Procedure performed:: Procedure: 1. Conscious sedation 2. Right heart catheterization 3. Left heart catheterization Sedation/Medication given:: Conscious sedation: The patient has no known prior history of adverse affects of conscious sedation. Oropharynx was clear. The patient is deemed a good candidate for conscious sedation. Conscious sedation began at: 11:20 a.m. Conscious sedation ended at: 12:14 p.m. Total conscious sedation time: 54 minutes Medications: Versed 1 mg, fentanyl 75 mcg IVP The patient had continuous hemodynamic monitoring, and was also continuously monitored by: Iris Barroso RN The patient tolerated conscious sedation well. Procedure note:: Site: Right femoral artery and vein Catheters: 7 Serbian venous sheath, 7 Serbian S curve and later C curve [place] catheter5 Serbian arterial sheath, 5 Serbian pigtail catheter Detailed procedure: After informed consent the patient brought to the pharmacy laboratory technician and the right femoral area was prepped and draped in the usual fashion. After conscious sedation and local anesthesia the right femoral vein was punctured and cannulated with the venous sheath. The [place] catheter was advanced up into the right heart, but the S curve could not be advanced into the right ventricle because of this severe tricuspid regurgitation and angulation. The S curve was exchanged for a C curve [place] catheter which was able to be manipulated into the ventricle and with the help of a guidewire up into the pulmonary artery. Pressure measurements were obtained. The wedge pressure was elevated so I elected to check the left ventricular end-diastolic pressure. The right femoral artery was punctured and cannulated with the arterial sheath. The pigtail catheter was advanced into the central circulation and left ventricle for pressure measurements. O2 saturations were obtained in the aorta. The pigtail catheter was removed. O2 saturations were obtained in the pulmonary artery in the right atrium and the [place] catheter was removed. Later the arterial sheath and venous sheaths were removed and hemostasis was obtained using local pressure. The patient tolerated the procedure well with no complications. Estimated blood loss was 10-15 cc. Findings:: Pressures: Right atrial pressure: Mean 22 mmHg RV pressure: 68/11-15 mmHg Pulmonary artery: 64/26 with a mean of 43 mmHg Wedge pressure: Mean 22 mmHg Left ventricle: 100/10 mmHg Aorta: 102/68 mmHg O2 saturations: Aorta 86%, pulmonary artery 40%, right atrium 38% Vascular resistance: Systemic vascular resistance by Jeannie was 813 dynes and thermodilution 736 dynes Pulmonary vascular resistance by Jeannie was 477 dynes/6 wood units, and by thermodilution was 432 dynes/5.4 wood units. Cardiac outputs: Jeannie: Cardi
--- NOTE | 2021-07-23 14:48 | SUR.PHASEII ---
pt c/o pain in bladder. notified Dr Botello, tylenol ordered.
[2021-07-23] MEDS: ACETAMINOPHEN 500 MG TABLET PO (15:02)
--- NOTE | 2021-07-23 16:27 | SUR.PHASEII ---
1600. Pt states she is having excruciating pain in abdomen from bladder. This rn explained to pt and step-daughter states that she might have to go to the ED. This RN called and informed ED and senior housekeeper for them to be aware of situation. 1635. Continuing to look for results from urine sample. Informed pt that we were still continuing to look for urine sample.
--- NOTE | 2021-07-23 16:45 | SUR.PHASEII ---
discharge instructions given to pt and family and read. pt and family states understanding.
--- NOTE | 2021-07-23 17:06 | SUR.PHASEII ---
Spoke with Dr James, will call in ATB to pt's pharmacy. Pt states she wants to go home, will brick picker some AZO and ATB.
== END 2021-07-23 17:20 | disposition home or self-care (01) ==
LOC: ANHCATHLAB 01:38 → ANHCARD 13:51 → ANHCATHLAB 07-29 07:45
PROVIDERS: PCP Internal Medicine; Visit Provider Internal Medicine Cardiovascular Disease
PROC: 4A023N8 Measurement of Cardiac Sampling and Pressure, Bilateral, Percutaneous Approach (ICD-10-PCS; CPT 93453; principal; 2021-07-23 10:30)
DX: I27.20 Pulmonary hypertension, unspecified (principal); I36.1 Nonrheumatic tricuspid (valve) insufficiency; I48.0 Paroxysmal atrial fibrillation; Z51.81 Encounter for therapeutic drug level monitoring; Z79.899 Other long term (current) drug therapy; Z95.2 Presence of prosthetic heart valve; K50.90 Crohn's disease, unspecified, without complications; I13.0 Hypertensive heart and chronic kidney disease with heart failure and stage 1 through stage 4 chronic kidney disease, or unspecified chronic kidney disease; I50.42 Chronic combined systolic (congestive) and diastolic (congestive) heart failure; E11.22 Type 2 diabetes mellitus with diabetic chronic kidney disease; J44.9 Chronic obstructive pulmonary disease, unspecified; R30.0 Dysuria; K21.9 Gastro-esophageal reflux disease without esophagitis; R31.0 Gross hematuria; M19.90 Unspecified osteoarthritis, unspecified site; E11.40 Type 2 diabetes mellitus with diabetic neuropathy, unspecified; F32.9 Major depressive disorder, single episode, unspecified; E78.5 Hyperlipidemia, unspecified; E87.0 Hyperosmolality and hypernatremia; D50.9 Iron deficiency anemia, unspecified; E11.51 Type 2 diabetes mellitus with diabetic peripheral angiopathy without gangrene; Z87.891 Personal history of nicotine dependence; I27.22 Pulmonary hypertension due to left heart disease; I49.8 Other specified cardiac arrhythmias; I95.0 Idiopathic hypotension; Z87.19 Personal history of other diseases of the digestive system; R53.81 Other malaise; N18.4 Chronic kidney disease, stage 4 (severe); E78.2 Mixed hyperlipidemia
CPT/HCPCS: 36415; 80048; 81001; 85025; 85610; 87077; 87086; 87186; 93453; A9270; C1769; C1887; C1894; C9803; J0461; J1644; J2250; J3010; J7040; U0003; U0005

== ENCOUNTER 2021-07-23 15:58 | Outpatient (NON) | payer OTHER, SELFPAY ==
[2021-07-23 16:45] LABS: Add Urine Microscopic? YES; Appearance Urine Cloudy (Clear); Bacteria Urine Trace /hpf; Bilirubin Urine Negative (Negative); Blood Urine 1+ (Negative); Color Urine Yellow (Yellow); Glucose Urine UA Negative (Negative); Ketones Urine Negative (Negative); Leukocyte Esterase Ur 2+ LEU/UL (Negative); Nitrate Urine Negative (Negative); Protein Urine 1+ mg/dL (Negative); Specific Grav Ur 1.016 (1.001-1.035); Squamous Epithelial Cell Urine Rare /hpf (Few); Urobilinogen Urine Negative mg/dL (<2.0); WBC Urine >75 /hpf
== END 2021-07-23 15:59 | disposition home or self-care (01) ==
PROVIDERS: PCP Internal Medicine; Visit Provider Internal Medicine
DX: R30.0 Dysuria (principal)
CPT/HCPCS: 81001; 87077; 87086; 87186

== ENCOUNTER 2021-09-24 08:56 | Outpatient (RCR) | payer OTHER, SELFPAY ==
[2021-09-23 14:13] LABS: Hematocrit 26.6 % (37.0-47.0); Hemoglobin 7.3 g/dL (12.0-15.0)
[2021-09-24] VITALS (10 sets, daily range): BP systolic 90–101; BP diastolic 53–64; PULSE 90–96; RESP 16–18; TEMP 36.2–36.4; O2SAT 99–100
[2021-09-24] MEDS: SODIUM CHLORIDE 0.9% IV 250 ML 30 ML IV CONT (10:00)
== END 2021-12-22 23:59 | disposition home or self-care (01) ==
LOC: ANHCPCTRAN 08:56
PROVIDERS: PCP Internal Medicine; Visit Provider Internal Medicine
DX: D69.6 Thrombocytopenia, unspecified (principal)
CPT/HCPCS: 36415; 36430; 85014; 85018; 86850; 86900; 86901; 86920; J7050; P9016